=== PATIENT | female | born 1955 | race Caucasian/White ===

== ENCOUNTER 2020-11-30 15:57 | Inpatient (IN) | payer MEDICARE, MEDICAID, SELFPAY ==
--- NOTE | ~2020-11-30 | CT_ITS ---
EXAMINATION: CT ANGIOGRAM OF THE HEAD CT ANGIOGRAM OF THE NECK CLINICAL INFORMATION: Acute CVA. COMPARISON: CT scan of the head 04/18/2016. TECHNIQUE: A noncontrast CT scan of the head was obtained. Test bolus series followed by intravenous administration 70 mL of Omnipaque 350. Helical imaging was performed in the axial plane from the mediastinum to the skull vertex. Delayed postcontrast CT scanning of the head was obtained. The degree of stenosis is based off NASCET criteria. The data was processed at the cytotechnologist/histotechnologist workstation for generation of MIP images. Three-dimensional volume rendered reformatted images were also generated at an offline 3-D workstation. This CT examination was performed using dose optimization techniques as appropriate, variously including the following: *Automated exposure control *Adjustment of mA and/or kV according to patient size (this includes techniques or standardized protocols for targeted exams where dose is matched to indication/reason for exam; i.e. extremities or head) *Use of iterative reconstruction technique DLP: 2236 mGy-cm. FINDINGS: CT Head: There is no evidence of acute intracranial hemorrhage or territorial infarction. No abnormal mass-effect or midline shift is seen. Canas to white matter differentiation is well preserved. No extra-axial fluid collections are identified. The study redemonstrates the meningioma in the right CP angle which measures 2.6 x 1.4 cm axially, unchanged compared to the prior study. There is some distortion of the right ventral gurmeet and middle cerebellar peduncle. The lesion is partially peripherally calcified. No other masses or areas of abnormal enhancement are demonstrated. There is mild commensurate prominence of the ventricles and sulci consistent with diffuse volume loss. There are areas of low-attenuation in the periventricular and subcortical white matter, consistent with chronic microvascular ischemic changes. The study redemonstrates sequelae of bilateral mastoid surgery. There is some fluid in the left mastoidectomy bowl. There is a 1 cm osteoma which is redemonstrated in the anterior left frontal sinus. CTA Neck: There is a classic configuration of the aortic arch. The origins of the great vessels of the neck are widely patent. The bilateral common carotid arteries have uniform caliber. There are mild atheromatous calcifications at the left greater the right carotid bifurcations without significant stenosis. The bilateral cervical internal carotid arteries are patent with uniform caliber. The origins of both vertebral arteries are well-demonstrated. The vertebral arteries are patent bilaterally throughout the cervical region extending intradurally. The vertebral arteries are codominant. Nonvascular: The thyroid gland is mildly prominent with heterogenous attenuation. There is a hyperdense 0.5 cm nodule in the left lobe medially. There are a few superior mediastinal lymph nodes measuring up to 0.8 cm. The bilateral submandibular and parotid glands appear normal. There are emphysematous changes in the lungs bilaterally. There are mild spondylitic changes in the cervical spine. CTA Head: There are atheromatous calcifications of the cavernous internal carotid arteries bilaterally. The vessels opacify normally. There is moderate narrowing of the distal M1 segment of the right middle cerebral artery which has uniform but diminished caliber. The left middle and bilateral anterior cerebral arteries demonstrate normal caliber with no evidence of focal stenosis, aneurysm or vascular malformation. There is normal arborization of the middle cerebral artery branches. The anterior communicating artery is normal. In the posterior circulation, the vertebral arteries are codominant. There is no displacement or mass effect on the right vertebral and right aspect of the basilar artery from the CP angle meningioma. The vertebral arteries intradurally have normal caliber. The basilar artery appears normal. The left posterior cerebral artery arises primarily off the anterior circulation, which is a normal variant. The posterior cerebral arteries have normal caliber. The venous sinuses opacify normally. CT/CT angio head neck IMPRESSION: CT head and neck: 1. The study redemonstrates a right CP angle meningioma which appears stable in size compared to prior imaging. 2. There are no acute bleeds or territorial infarcts. 3. There is diffuse volume loss and there are chronic microvascular ischemic changes. 4. There are sequelae of bilateral mastoid surgery. 5. The thyroid gland is mildly prominent with heterogenous attenuation. There are emphysematous changes in the lungs bilaterally. CTA head and neck: 1. CTA of the cervical arterial structures is normal. There is no flow-limiting stenosis. 2. Intracranially, there is moderate narrowing of the distal M1 segment of the right middle cerebral artery. 3. No vascular malformations or aneurysms are demonstrated.
--- NOTE | ~2020-11-30 | FL_ITS ---
EXAMINATION: FL BARIUM SWALLOW MODIFIED CLINICAL INFORMATION: Dysphagia, stroke. COMPARISON: None TECHNIQUE: Modified barium swallow. FINDINGS: Fluoroscopy provided for modified barium swallow performed by the speech pathologist. The patient swallowed liquids and solids of varying consistencies. There is aspiration noted when the patient swallowed nectar. No additional aspiration was identified, when the patient swallowed additional solids and liquids of other consistencies. FLUOROSCOPY TIME: 2.7 minutes DOSE AREA PRODUCT: 10 mGy FL/FL barium swallow modified IMPRESSION: Modified barium swallow. There is aspiration, when the patient swallowed nectar. Please see speech pathology report for details.
--- NOTE | ~2020-11-30 | XR_ITS ---
EXAMINATION: XR CHEST CLINICAL INFORMATION: CVA. COMPARISON: Chest x-ray 07/19/2018 TECHNIQUE: Frontal portable view of the chest was obtained. 5:01 PM FINDINGS: No significant abnormality is noted involving the heart, lungs, mediastinum, bony thorax or soft tissues. XR/XR chest 1V IMPRESSION: Unremarkable examination.
[2020-11-30 16:11] VITALS: BP 160/60; BP 168/71; PULSE 76; PULSE 86; RESP 18; TEMP 36.8; O2SAT 97; BMI 22.4
--- NOTE | 2020-11-30 16:16 | ED_ITS ---
HPI - Neuro Symptoms/Deficit General Chief Complaint: Stroke Stated Complaint: stroke alert Time Seen by Provider: 11/30/20 16:12 Source: patient Mode of arrival: EMS Limitations: no limitations History of Present Illness HPI Narrative: Patient's history history of hypertension and anxiety been having repeated episode of right- sided weakness for last 2 days started 2 days ago when she noticed right-sided weakness which lasted less than 5 minutes again yesterday she had the same feeling and today when she woke up at 08:00 was unable to get up out of the bed because of right-sided weakness and fell without any significant injuries her niece was trying to call her all day today and she was not answering the phone around 03:00 o'clock prior to arrival patient just opened the door after crawling family noticed the patient has significant right-sided weakness with dysarthria. Related Data Home Medications Medication Instructions Recorded Confirmed atenolol 1 tab PO DAILY 11/30/20 11/30/20 clonazepam 1 tab PO DAILY 11/30/20 11/30/20 lisinopril 1 tab PO DAILY 11/30/20 11/30/20 Allergies Allergy/AdvReac Type Severity Reaction Status Date / Time No Known Allergies Allergy Verified 11/30/20 16:10 [No Known Allergies*] Review of Systems Review of Systems: Constitutional : No Weight loss, No Fever, No Chills ENT/Mouth : No sore throat, No Rhinorrhea Eyes: No Eye Pain, No Swelling Cardiovascular : No Chest Pain, no palpitations Respiratory : No Cough, No Sputum, no shortness of breath Gastrointestinal : no Nausea, No Vomiting, No Diarrhea, No abdominal Pain, no black stools Genitourinary : No Dysuria, No Urinary Frequency Musculoskeletal : No joint pain, No Myalgias, No Joint Swelling Skin : No Skin Lesions, No rash Neuro : + Weakness, No Numbness, No Dizziness, No Headache Psych : No Anxiety/Panic, No Depression Heme/Lymph: No Bruising, No Lymphadenopathy Endocrine : No Polyuria, No Polydipsia All other systems reviewed and are negative Neurologic: Reports Abnormal speech present [facility] Past Medical History Medical History Cerebellar tumor COPD (chronic obstructive pulmonary disease) HTN (hypertension) Social History Social History Alcohol intake: current Alcohol intake frequency: holidays/special occasions o nly Smoking Status: Current every day smoker Use of substances other than those prescribed or required for medical reasons: No Advance Directives: No Advance Directives Information Provided: Yes service: No Current occupational status: retired Physical Exam Vital Signs: Vital Signs: Last Vital Signs Temp 97.6 F 11/30/20 22:54 Pulse 69 11/30/20 22:54 Resp 18 11/30/20 22:54 BP 151/67 H 11/30/20 22:54 Pulse Ox 96 11/30/20 22:54 Body Mass Index 22.4 Const: General: cooperative, healthy appearing and no acute distress Nutritional Appearance: average body habitus Orientation/consciousness: patient oriented x3 HENMT: Head: Yes normal to inspection, Yes No palpable skull fracture present, Yes normocephalic and Yes atraumatic Ears: hearing grossly normal bilaterally General nose exam: Normal external nose present Face and sinus: Yes normal facial exam Mouth: Normal oral and palatal mucosa present Eyes: General: appearance normal, both eyes and all related structures Neck: Neck: Yes normal visual inspection, Yes full ROM, Yes no lymphadenopathy and Yes no meningeal signs Chest: Chest palpation & inspection: normal inspection of the chest and normal palpation of entire chest wall Resp: Effort & Inspection: normal respiratory effort Auscultation: clear to auscultation bilaterally, no crackles, no rales and no rhonchi Cardio: Jugular venous distension: no JVD Palpation: normal PMI Rate: regular rate Rhythm: regular rhythm Heart sounds: S1 normal heart sound present and S2 normal heart sound present Peripheral pulses: Peripheral pulses 2+ throughout GI: Inspection: Yes normal to inspection Palpation (GI): Soft to palpation, not firm and nontender Auscultation: normal bowel sounds : General: Yes no CVA tenderness Back/Spine/Pelvis: Back: no CVA tenderness Thoracic/Lumbar Spine: thoracic and lumbar spine normal to inspection Skin: General skin exam: no rashes or lesions noted Neuro: Other: Patient with dysarthria and right-sided weakness and right facial droop General: patient oriented x3 and no meningeal signs Cognition (Neuro): normal cognition Speech: Abnormal speech present MDM - Neuro Symptoms/Deficit MDM Narrative Medical decision making narrative: Patient has recurrent episodes of left-sided weakness for last 48 hours got worse today with persistent weakness since :00 o'clock morning CTA and CT head is negative for any acute stroke although showed right M1 narrowed case discussed with Dr. Lam neurologist no need for MRI will start her on aspirin patient EKG showed normal sinus rhythm without any AFib Differential Diagnosis Differential diagnosis: Likely transient cerebral ischemia Medical Records Attestation: I reviewed the patient's medical records. Lab Data Attestation: I reviewed the patient's lab results. Result diagrams: 11/30/20 16:58 11/30/20 17:58 Labs: Lab Results 11/30/20 11/30/20 11/30/20 Range/Units 16:25 16:58 16:58 WBC 13.5 H (4.8-10.8) X10*3/uL RBC 4.57 (4.20-5.50) X10*6/uL Hgb 14.9 (12.0-16.0) g/dl Hct 43.4 (37-47) % MCV 95.0 (80-98) fL MCH 32.6 (27.0-33.0) pg MCHC 34.3 (31.0-35.0) g/dl RDW 12.4 (11.0-16.0) % Plt Count 219 (160-400) X10*3/uL MPV 9.9 (9.4-12.3) fL Immature Gran % (Auto) 0.5 H (0.0-0.4) % Neut % (Auto) 87.9 H (45-73) % Lymph % (Auto) 5.7 L (20-40) % Garden % (Auto) 5.8 (2-11) % Eos % (Auto) 0.0 (0-4) % Baso % (Auto) 0.1 (0-2) % Lymph # (Auto) 0.8 L (1.2-4.9) X10*3/uL Garden # (Auto) 0.8 (0.1-1.2) X10*3/uL Eos # (Auto) 0.0 (0.0-0.4) X10*3/uL Baso # (Auto) 0.0 (0.0-0.2) X10*3/uL Abs Immat Gran (auto) 0.07 H (0.00-0.03) X10*3/uL Absolute Neuts (auto) 11.8 H (2.0-8.3) X10*3/uL Absolute Nucleated RBC 0.000 (0.0-0.012) X10*3/uL Nucleated RBC % (auto) 0.0 (0.0-0.2) /100WBC PT 12.2 (10.8-13.0) SEC INR 1.0 (0.9-1.1) APTT 31.4 (24.1-38.0) SEC Sodium (135-145) mmol/L Potassium (3.3-5.1) mmol/L Chloride (96-108) mmol/L Carbon Dioxide (22-29) mmol/L Anion Gap (12-20) BUN (9-16) mg/dL Creatinine (0.5-1.4) mg/dL Estim Creat Clear Calc Estimated GFR POC Glucose 140 H (60-115) mg/dL Random Glucose (60-115) mg/dL Calcium (8.4-10.2) mg/dL Total Bilirubin (0.0-1.0) mg/dL Direct Bilirubin (0.0-0.5) mg/dL AST (5-31) U/L ALT (0-31) U/L Alkaline Phosphatase (39-117) U/L Total Creatine Kinase (26-140) U/L Troponin I High Sens (<3.5-17.0) ng/L Total Protein (6.5-8.0) g/dL Albumin (3.5-5.0) g/dL COVID-19 ([facility]) (Negative) COVID-19 Clin Com 11/30/20 11/30/20 11/30/20 Range/Units 16:58 17:58 19:45 WBC (4.8-10.8) X10*3/uL RBC (4.20-5.50) X10*6/uL Hgb (12.0-16.0) g/dl Hct (37-47) % MCV (80-98) fL MCH (27.0-33.0) pg MCHC (31.0-35.0) g/dl RDW (11.0-16.0) % Plt Count (160-400) X10*3/uL MPV (9.4-12.3) fL Immature Gran % (Auto) (0.0-0.4) % Neut % (Auto) (45-73) % Lymph % (Auto) (20-40) % Garden % (Auto) (2-11) % Eos % (Auto) (0-4) % Baso % (Auto) (0-2) % Lymph # (Auto) (1.2-4.9) X10*3/uL Garden # (Auto) (0.1-1.2) X10*3/uL Eos # (Auto) (0.0-0.4) X10*3/uL Baso # (Auto) (0.0-0.2) X10*3/uL Abs Immat Gran (auto) (0.00-0.03) X10*3/uL Absolute Neuts (auto) (2.0-8.3) X10*3/uL Absolute Nucleated RBC (0.0-0.012) X10*3/uL Nucleated RBC % (auto) (0.0-0.2) /100WBC PT (10.8-13.0) SEC INR (0.9-1.1) APTT (24.1-38.0) SEC Sodium 139 (135-145) mmol/L Potassium 4.1 (3.3-5.1) mmol/L Chloride 106 (96-108) mmol/L Carbon Dioxide 21 L (22-29) mmol/L Anion Gap 16 (12-20) BUN 16 (9-16) mg/dL Creatinine 0.79 (0.5-1.4) mg/dL Estim Creat Clear Calc 56.1 Estimated GFR > 60 POC Glucose (60-115) mg/dL Random Glucose 104 (60-115) mg/dL Calcium 9.2 (8.4-10.2) mg/dL Total Bilirubin 0.6 (0.0-1.0) mg/dL Direct Bilirubin 0.3 (0.0-0.5) mg/dL AST 33 H (5-31) U/L ALT 44 H (0-31) U/L Alkaline Phosphatase 72 (39-117) U/L Total Creatine Kinase 66 (26-140) U/L Troponin I High Sens < 3.5 (<3.5-17.0) ng/L Total Protein 6.9 (6.5-8.0) g/dL Albumin 4.1 (3.5-5.0) g/dL COVID-19 ([facility]) Negative (Negative) COVID-19 Clin Com See Note ECG Data Attestation: I personally reviewed and interpreted this ECG as follows: Interpretation: Normal sinus rhythm heart rate 82 beats per minute poor progression of R-wave no acute ST T wave changes normal axis normal intervals impression no acute ischemia NIH Stroke Scale Internal: Initial- Upon Arrival Level of Consciousness: Alert Level of Consciousness Questions: Answers both questions correctly Level of Consciousness Commands: Performs both tasks correctly Best Gaze: Normal Visual: No visual loss Facial Palsy: Minor paralyis Motor Arm (Right): Drift Motor Arm (Left): No drift Motor Leg (Right): Drift Motor Leg (Left): No drift Limb Ataxia: Absent Sensory: Normal Best Language: No aphasia Dysarthia: Mild to moderate dysarthria Extinction and Inattention: No abnormality Score: 4 Discharge Plan Discharge Clinical Impression: Cerebrovascular accident Qualifiers: CVA mechanism: embolism Precerebral and cerebral artery: middle cerebral artery Laterality of affected vessel: left Qualified Code(s): I63.412 - Cerebral in farction due to embolism of left middle cerebral artery Patient Disposition: Admitted As Inpatient
--- NOTE | 2020-11-30 16:17 | ECG_ITS ---
Test Reason : cva Blood Pressure : / mmHG Vent. Rate : 082 BPM Atrial Rate : 082 BPM P-R Int : 166 ms QRS Dur : 076 ms QT Int : 374 ms P-R-T Axes : 066 003 054 degrees QTc Int : 436 ms Normal sinus rhythm Possible Anterior infarct (cited on or before 21-APR-2015) Abnormal ECG When compared with ECG of 21-APR-2015 04:53, No significant change was found Referred By: Didier Carranza Electronically Signed By:ELZBIETA MONROE MD
[2020-11-30 16:28] LABS: Glucose, Whole Blood 140 mg/dL (60-115)
--- NOTE | 2020-11-30 16:29 | PC.NURSE ---
patient a&ox3, rt sided weakness, rt facial droop and slurred speech noted, pt has no c/o pain or discomfort, nsr on quality assurance monitor, pt to ct scan
[2020-11-30] MEDS: iohexoL 350 MG/ML 100 ML INFUS..BTL IV (16:48)
--- NOTE | 2020-11-30 17:01 | PC.NURSE ---
swallow eval nursing swallow performed, pt began coughing after second teaspoon, provider notified pt failed nursing swallow
[2020-11-30 17:02] LABS: MANUAL DIFF FLAG NO
[2020-11-30 17:11] LABS: Basophils Percent Auto 0.1 % (0-2); Hematocrit 43.4 % (37-47); Hemoglobin 14.9 g/dl (12.0-16.0); Imm Gran Abs Auto 0.07 X10*3/uL (0.00-0.03); Imm Gran Pct Auto 0.5 % (0.0-0.4); Lymphocytes Absolute Auto 0.8 X10*3/uL (1.2-4.9); Lymphocytes Percent Auto 5.7 % (20-40); Mean Corpuscular HGB Conc 34.3 g/dl (31.0-35.0); Mean Corpuscular Hemoglobin 32.6 pg (27.0-33.0); Mean Platelet Volume 9.9 fL (9.4-12.3); Monocytes Absolute Auto 0.8 X10*3/uL (0.1-1.2); Monocytes Percent Auto 5.8 % (2-11); Neutrophils Absolute Auto 11.8 X10*3/uL (2.0-8.3); Neutrophils Percent Auto 87.9 % (45-73); Platelet Count 219 X10*3/uL (160-400); Red Blood Count 4.57 X10*6/uL (4.20-5.50); Red Cell Distribution Width 12.4 % (11.0-16.0); White Blood Count 13.5 X10*3/uL (4.8-10.8)
[2020-11-30 17:16] LABS: Prothrombin Time 12.2 SEC (10.8-13.0)
[2020-11-30 17:18] LABS: Partial Thromboplastin Time 31.4 SEC (24.1-38.0)
[2020-11-30 17:36] LABS: Troponin-I High Sensitivity < 3.5 ng/L (<3.5-17.0)
[2020-11-30 18:18] VITALS: BP 146/45; PULSE 75; RESP 15; TEMP 36.9; O2SAT 94
[2020-11-30 18:35] LABS: Alanine Aminotransferase 44 U/L (0-31); Albumin Level 4.1 g/dL (3.5-5.0); Alkaline Phosphatase 72 U/L (39-117); Anion Gap 16 (12-20); Aspartate Amino Transferase 33 U/L (5-31); Bilirubin Direct 0.3 mg/dL (0.0-0.5); Bilirubin Total 0.6 mg/dL (0.0-1.0); Blood Urea Nitrogen 16 mg/dL (9-16); Calcium 9.2 mg/dL (8.4-10.2); Carbon Dioxide 21 mmol/L (22-29); Chloride 106 mmol/L (96-108); Creatinine Clr Calc Pharmacy 56.1; Estimated Glomerular Filt Rate > 60; Glucose Random 104 mg/dL (60-115); Potassium 4.1 mmol/L (3.3-5.1); Sodium 139 mmol/L (135-145); Total Protein 6.9 g/dL (6.5-8.0)
--- NOTE | 2020-11-30 19:02 | PC.NURSE ---
patient a&ox3, residential monitor nsr 70s, vitals stable, upon review of MRI form patient is refusing MRI because it is a closed MRI, provider notified and pt was offered medication to relax for mri and patient again refused, will attempt to educate the patient on the reasoning for the mri in hopes to change her mind, will continue to monitor.
[2020-11-30] MEDS: 0.9 % Sodium Chloride 1,000 ML 999 ML IVCONT (19:03)
--- NOTE | 2020-11-30 19:46 | PC.NURSE ---
covid swab obtained, attempted to convince patient to do the MRI again, patient again refused, this nurse went over the risks of not having it done with the patient
[2020-11-30 20:07] LABS: COVID-19 Test Negative (Negative)
[2020-11-30] MEDS: Aspirin 300 MG SUPP.RECT PR (20:07)
[2020-11-30 20:08] VITALS: BP 156/71; PULSE 73; RESP 18; TEMP 36.9; O2SAT 96
--- NOTE | 2020-11-30 20:27 | PC.NURSE ---
patient a&ox3, speaking in full sentences although the patients speech has noted to become more garbled, pt continues to have rt upper and lower extremity weakness, provider notified of increased garbled speech, pt continues to refuse MRI, equalizing saw operator nsr 70s, hospitalist in to see the patient,will continue to monitor.
[2020-11-30 21:55] LABS: Cholesterol 242 mg/dL; HDL Cholesterol 46 mg/dL; LDL Cholesterol Calculated 181 mg/dl; Triglycerides 77 mg/dL
--- NOTE | 2020-11-30 22:28 | MHC.CM.PN ---
CM met with pt. C/O R sided weakness and dysarthria. Pt admitted to observation. YEBOAH reviewed and signed. Pt signed with L hand. Pt has bilateral hearing aides, but only has L hearing aide in. Has daughter in [facility]. Niece, Fay Miller ([phone]) lives in duplex next to pt. D/C plan pending further evaluation. Pt lives alone. Will probably need STR.
--- NOTE | 2020-11-30 22:40 | MHC.CM.PN ---
Daughter, Cherelle in [facility] ([phone]) CM to follow for d/c needs
[2020-11-30] MEDS: Enoxaparin Sodium 40 MG/0.4 ML SYRINGE SUBCUT (22:53)
[2020-11-30 22:54] VITALS: BP 151/67; PULSE 69; RESP 18; TEMP 36.4; O2SAT 96
--- NOTE | 2020-11-30 22:55 | PC.NURSE ---
patient a&ox3, library monitor sinus briana 60s, patient continued refusing MRI.
--- NOTE | 2020-11-30 23:00 | PC.NURSE ---
Report received from AAMIR Thomas. Pt resting comfortably at this time. Will continue to monitor. Awaiting bed assignment.
--- NOTE | 2020-11-30 23:03 | MHC.CM.PN ---
CM tiger text Dr. Limon. Pt status changed to Inpatient admit s/p CVA. Pt evaluation ordered. Pt refusing MRI because it's not an open MRI and she cannot tolerate an MRI otherwise. RN aware. IMM reviewed and signed per protocol. Copy to pt and in chart. CM to follow for d/c needs.
--- NOTE | 2020-11-30 23:30 | P.HPHOSP_ITS ---
History of Present Illness Date of Service: 11/30/20 Chief Complaint: weakness This is a 65-year-old female past medical history of hypertension, COPD, meningioma, as well as anxiety who presents to the hospital with complaints of weakness x2 days. Patient slurred speech and very difficult to understand but reports that her symptoms started Monday, lasted for few minutes and then resolved spontaneously. On Monday patient started having right sided weakness that lasted couple hours, but patient refused to complete the hospital. She woke up this morning at 8:00 a.m. with right-sided weakness. Her daughter was trying to get hold of her but was not successful does 3:00 p.m. when they went to check on her found her to have weakness on the right side and therefore brought her to the ED. Patient denies any headache, change in vision, no nausea or vomiting, no abdominal pain, no chest pain, no shortness of breath, no palpitations. No diarrhea or constipation. No lower extremity edema. No urinary symptoms On arrival to the ED blood pressure is 168/71 all other vitals normal Labs are significant for WBC count of 13.5, glucose of 140, AST of 33, ALT of 44, otherwise unremarkable. COVID-[address] head [address] CT angiogram of head and neck shows redemonstration of CP angle meningioma which appears stable in size, no Q bleed or territorial infarct, diffuse volume lives and chronic microvascular ischemic changes. CTA of the cervical arterial structures normal, no flow-limiting stenosis. Intracranially, there is moderate narrowing of the distal M1 segment of the right middle cerebral artery. Review of Systems Review of Systems: Yes all other systems are reviewed and are negative [facility] Medical History (Updated 12/01/20 @ 05:28 by Emani Morrissey MD) Cerebellar tumor COPD (chronic obstructive pulmonary disease) HTN (hypertension) Meningioma Pertinent family history: denies Social History Alcohol intake: current Alcohol intake frequency: holidays/special occasions only Smoking Status: Current every day smoker Use of substances other than those prescribed or required for medical reasons: No Advance Directives: No Advance Directives Information Provided: Yes service: No Current occupational status: retired Meds Allergies Allergy/AdvReac Type Severity Reaction Status Date / Time No Known Allergies Allergy Verified 11/30/20 16:10 [No Known Allergies*] Active Medications: Current Medications Generic Name Dose Route Start Last Admin Trade Name Freq PRN Reason Stop Dose Admin Acetaminophen 650 mg 11/30/20 20:56 Acetaminophen Supp 650 Mg Supp.Rect DC Q6H PRN Pain, Mild (Pain Scale 1-3) Aspirin 81 mg 12/01/20 09:00 Aspirin 300 Mg Supp.Rect DC DAILY [facility] Atenolol 25 mg 12/01/20 09:00 Atenolol 25 Mg Tablet PO DAILY [facility] Protocol Clonazepam 1 mg 12/01/20 09:00 Clonazepam 1 Mg Tablet PO DAILY [facility] Enoxaparin Sodium 40 mg 11/30/20 20:56 11/30/20 22:53 Enoxaparin Sodium 40 Mg/0.4 Ml Syringe SUBCUT 40 mg Q24H [facility] Administration Lactated Ringer's 1,000 mls @ 80 mls/hr 11/30/20 23:30 Lr IVCONT .[id number] [facility] Lisinopril 40 mg 12/01/20 09:00 Lisinopril 40 Mg Tablet PO DAILY [facility] Protocol Ondansetron HCl 4 mg 11/30/20 20:56 Ondansetron Hcl 4 Mg/2 Ml Vial IVPUSH Q8H PRN Nausea and Vomiting Pharmacy Consult 1 each 11/30/20 19:04 Consult Rx Perform Med Rec MISCELLANE ONCE PRN Consult order Sodium Chloride 3 ml 12/01/20 00:00 0.9 % Sodium Chloride Flush 3 Ml Syringe IVFLUSH QSHIFT [facility] Home Medications Medication Instructions Recorded Confirmed Last Taken Type atenolol 1 tab PO DAILY 11/30/20 11/30/20 11/29/20 History clonazepam 1 tab PO DAILY 11/30/20 11/30/20 11/29/20 History lisinopril 1 tab PO DAILY 11/30/20 11/30/20 11/29/20 History Physical Exam Vital Signs and Narrative: Vital Signs: Last Vital Signs Temp 97.6 F 11/30/20 22:54 Pulse 69 11/30/20 22:54 Resp 18 11/30/20 22:54 BP 151/67 H 11/30/20 22:54 Pulse Ox 96 11/30/20 22:54 Body Mass Index 22.4 Const: General: cooperative and no acute distress Orientation/consciousness: patient oriented x3 Eyes: General: appearance normal, both eyes and all related structures Pupils: Equal, round and reactive pupils present EOM: EOMs intact bilaterally Resp: Effort & Inspection: normal respiratory effort and able to speak in complete sentences Auscultation: clear to auscultation bilaterally Cardio: Rate: regular rate Rhythm: regular rhythm GI: Palpation (GI): Soft to palpation Auscultation: normal bowel sounds Skin: General skin exam: no rashes or lesions noted Neuro: Other: drift of right arm, unable to lift right leg to observe for drift. Has 2/5 strenght in right lower extremity, and 4/5 in upper right extremity. has facial droop and tongue deviation to the right General: patient oriented x3 Cranial nerves: Yes Equal, round and reactive pupils present Cognition (Neuro): normal cognition Extrem: General: Yes normal to inspection and Yes no pedal edema Results Labs CBC and Chem 7: 11/30/20 16:58 11/30/20 17:58 Labs: Laboratory Results - last 24 hr 11/30/20 11/30/20 11/30/20 16:25 16:58 16:58 MCV 95.0 MCH 32.6 MCHC 34.3 RDW 12.4 Plt Count 219 MPV 9.9 Immature Gran % (Auto) 0.5 H Neut % (Auto) 87.9 H Lymph % (Auto) 5.7 L Power % (Auto) 5.8 Eos % (Auto) 0.0 Baso % (Auto) 0.1 Lymph # (Auto) 0.8 L Power # (Auto) 0.8 Eos # (Auto) 0.0 Baso # (Auto) 0.0 Abs Immat Gran (auto) 0.07 H Absolute Neuts (auto) 11.8 H Absolute Nucleated RBC 0.000 Nucleated RBC % (auto) 0.0 PT 12.2 INR 1.0 APTT 31.4 Anion Gap Estim Creat Clear Calc Estimated GFR POC Glucose 140 H Random Glucose Calcium Total Bilirubin Direct Bilirubin AST ALT Alkaline Phosphatase Total Creatine Kinase Troponin I High Sens Total Protein Albumin Triglycerides Cholesterol LDL Cholesterol, Calc HDL Cholesterol COVID-19 ([facility]) COVID-19 Clin Com 11/30/20 11/30/20 11/30/20 16:58 17:58 19:45 MCV MCH MCHC RDW Plt Count MPV Immature Gran % (Auto) Neut % (Auto) Lymph % (Auto) Power % (Auto) Eos % (Auto) Baso % (Auto) Lymph # (Auto) Power # (Auto) Eos # (Auto) Baso # (Auto) Abs Immat Gran (auto) Absolute Neuts (auto) Absolute Nucleated RBC Nucleated RBC % (auto) PT INR APTT Anion Gap 16 Estim Creat Clear Calc 56.1 Estimated GFR > 60 POC Glucose Random Glucose 104 Calcium 9.2 Total Bilirubin 0.6 Direct Bilirubin 0.3 AST 33 H ALT 44 H Alkaline Phosphatase 72 Total Creatine Kinase 66 Troponin I High Sens < 3.5 Total Protein 6.9 Albumin 4.1 Triglycerides Cholesterol LDL Cholesterol, Calc HDL Cholesterol COVID-19 ([facility]) Negative COVID-19 Clin Com See Note 11/30/20 21:25 MCV MCH MCHC RDW Plt Count MPV Immature Gran % (Auto) Neut % (Auto) Lymph % (Auto) Power % (Auto) Eos % (Auto) Baso % (Auto) Lymph # (Auto) Power # (Auto) Eos # (Auto) Baso # (Auto) Abs Immat Gran (auto) Absolute Neuts (auto) Absolute Nucleated RBC Nucleated RBC % (auto) PT INR APTT Anion Gap Estim Creat Clear Calc Estimated GFR POC Glucose Random Glucose Calcium Total Bilirubin Direct Bilirubin AST ALT Alkaline Phosphatase Total Creatine Kinase Troponin I High Sens Total Protein Albumin Triglycerides 77 Cholesterol 242 LDL Cholesterol, Calc 181 HDL Cholesterol 46 COVID-19 ([facility]) COVID-19 Clin Com Imaging Radiologist's Impressions: Impressions Chest X-Ray 11/30/20 16:18 IMPRESSION: Unremarkable examination. Head/Neck CTA 11/30/20 16:19 IMPRESSION: CT head and neck: 1. The study redemonstrates a right CP angle meningioma which appears stable in size compared to prior imaging. 2. There are no acute bleeds or territorial infarcts. 3. There is diffuse volume loss and there are chronic microvascular ischemic changes. 4. There are sequelae of bilateral mastoid surgery. 5. The thyroid gland is mildly prominent with heterogenous attenuation. There are emphysematous changes in the lungs bilaterally. CTA head and neck: 1. CTA of the cervical arterial structures is normal. There is no flow-limiting stenosis. 2. Intracranially, there is moderate narrowing of the distal M1 segment of the right middle cerebral artery. 3. No vascular malformations or aneurysms are demonstrated. Assessment and Plan (1) Cerebrovascular accident: Qualifiers: CVA mechanism: embolism Laterality of affected vessel: left Precerebral and cerebral artery: middle cerebral artery Qualified Code(s): I63.412 - Cerebral infarction due to embolism of left middle cerebral artery Status: Acute (2) COPD (chronic obstructive pulmonary disease): Status: Acute (3) HTN (hypertension): Status: Acute This is a 65-year-old female with risk factors of hypertension who presents to the hospital with complaints of weakness on the right side found to have dysarthria, and right and lower right extremity weakness. # CVA - CT head and angiogram are not demonstrating any acute abnormality - has history of meningioma which is redemonstrated with no change in size - patient has clear dysarthria as well as right upper and lower extremity weakness - refused MRI- neurology consulted and recommends aspirin daily as well as echocardiogram in a.m. - will obtain lipid profile - start high dose statin - admit to telemetry to monitor for AFib - will consult PT - patient also failed beside swallow eval will consult speech team # hypertension - elevated - since symptoms started more than 24 hours will resume her home medications # COPD - no exacerbation - PRN inhaler DVT ppx: Lovenox
[2020-12-01] MEDS: 0.9 % Sodium Chloride Flush 3 ML SYRINGE IVFLUSH ×2 (01:31→16:50)
--- NOTE | 2020-12-01 02:36 | PC.NURSE ---
Pt used chilo thomas to speak with this RN regarding care. Pt voicing concerns, stating Is the doctor going to ignore me and am I not going to be treated because I refused the MRI? This RN explained to the patient that although the MRI is highly recommended, it will not affect the quality of her care or treatment while hospitalized. This RN reviewed care plan and goals with patient, and patient is agreeable to plan. Continue to await bed assignment. Will continue to monitor.
[2020-12-01] MEDS: Lactated Ringers 1,000 ML 80 ML IVCONT (04:10)
[2020-12-01 06:42] LABS: MANUAL DIFF FLAG NO
[2020-12-01 06:53] LABS: Basophils Percent Auto 0.2 % (0-2); Eosinophils Absolute Auto 0.1 X10*3/uL (0.0-0.4); Eosinophils Percent Auto 0.4 % (0-4); Hematocrit 41.5 % (37-47); Imm Gran Abs Auto 0.05 X10*3/uL (0.00-0.03); Imm Gran Pct Auto 0.4 % (0.0-0.4); Lymphocytes Absolute Auto 2.1 X10*3/uL (1.2-4.9); Lymphocytes Percent Auto 16.3 % (20-40); Mean Corpuscular HGB Conc 33.7 g/dl (31.0-35.0); Mean Corpuscular Hemoglobin 32.1 pg (27.0-33.0); Mean Corpuscular Volume 95.2 fL (80-98); Mean Platelet Volume 10.2 fL (9.4-12.3); Monocytes Absolute Auto 1.1 X10*3/uL (0.1-1.2); Neutrophils Absolute Auto 9.3 X10*3/uL (2.0-8.3); Neutrophils Percent Auto 73.7 % (45-73); Platelet Count 210 X10*3/uL (160-400); Red Blood Count 4.36 X10*6/uL (4.20-5.50); Red Cell Distribution Width 12.5 % (11.0-16.0); White Blood Count 12.6 X10*3/uL (4.8-10.8)
[2020-12-01 07:18] LABS: Anion Gap 12 (12-20); Blood Urea Nitrogen 18 mg/dL (9-16); Calcium 8.6 mg/dL (8.4-10.2); Carbon Dioxide 19 mmol/L (22-29); Chloride 113 mmol/L (96-108); Creatinine Clr Calc Pharmacy 54.1; Estimated Glomerular Filt Rate > 60; Glucose Random 103 mg/dL (60-115); Sodium 140 mmol/L (135-145)
--- NOTE | 2020-12-01 07:33 | PC.NURSE ---
report taken from Trish RN. patient resting on stretcher, awake and alert. speech sounding slurred, but able to speak in full sentences. patient assisted with bedpan. patient has room in [facility]. called to floor to give report. floor RN to call back to receive report.
--- NOTE | 2020-12-01 07:37 | PC.NURSE ---
PHYSICAL THERAPY AT BEDSIDE TO ASSESS PATIENT.
[2020-12-01 08:00] VITALS: BP 151/67; BP 178/82; PULSE 69; PULSE 72; RESP 20; TEMP 36.6; O2SAT 96; O2SAT 97
--- NOTE | 2020-12-01 09:41 | MHC.CM.PN ---
CM met with Patient to discuss PT's recommendation for Acute Rehab; Patient is agreeable to referrals to the 3 area Acute Rehabs, [facility] being her first choice. CM will follow for dc planning.
[2020-12-01 11:03] VITALS: BP 172/73; PULSE 72; RESP 18; TEMP 36.1; O2SAT 94
--- NOTE | 2020-12-01 12:39 | MHC.STROKE ---
1550 EMS PRE-NOTIFIED STROKE ALERT, DEMETRIUS WAS 2 DAYS AGO AND DISCOVERY OF WORSENING SYMPTOMS 11/30/[address] HEAD AND CTA H/N. LEFT M1 NARROWING WHICH CORRELATES WITH HER SYMPTOMS. I PROVIDED STROKE EDUCATION. SHE IS REFUSING THE MRI AT THIS TIME. SEEN BY REHAB AND ACUTE REHAB IS RECOMMENDED. SHE WAS UNABLE TO ANSWER ALL OF MY QUESTIONS. DYSARTHRIA NOTED. + SMOKING AND SMOKING CESSATION EDUCATION INITIATED. CONSIDER A NICOTINE PATCH. I REVIEWED THE STROKE EDUCATION BOOKLET AND SHE DOES REQUIRE REINFORCEMENT. I WILL CONTINUE TO FOLLOW. NEUROLOGY CONSULT PENDING.
[2020-12-01 15:41] VITALS: BP 173/66; PULSE 66; RESP 18; TEMP 36.4; O2SAT 97
--- NOTE | 2020-12-01 16:31 | HO.PM.IMPN ---
Subjective Subjective Date of Service: 12/01/20 Interval History: seen and examined this AM no specific complaints, just wants to eat denies LOZA ROS General - no fevers or chills Cardiovascular - no chest pain Respiratory - no shortness of breath or cough Abdominal- no abdominal pain, nausea, vomiting, diarrhea Physical Exam Vital Signs: Vital Signs: Last Vital Signs Temp 97.6 F 12/01/20 15:41 Pulse 66 12/01/20 15:41 Resp 18 12/01/20 15:41 BP 173/66 H 12/01/20 15:41 Pulse Ox 97 12/01/20 15:41 Body Mass Index 22.4 Const: Other: General - no acute distress, appears comfortable Cardiovascular - regular rate and rhythm, S1-S2 Lungs - normal respiratory effort, clear to auscultation bilaterally, no wheezing Abdomen - soft, nontender, no rebound or guarding Extremities - no edema bilaterally Neuro - awake and alert, dysarthria -- ? appears to be improving; b/l UE strength appears nearly equal; RLE 3-4/5; LLE nl Objective Data Current Medications Generic Name Dose Route Start Last Admin Trade Name Freq PRN Reason Stop Dose Admin Acetaminophen 650 mg 11/30/20 20:56 Acetaminophen Supp 650 Mg Supp.Rect UT Q6H PRN Pain, Mild (Pain Scale 1-3) Aspirin 300 mg 12/01/20 09:00 12/01/20 09:26 Aspirin 300 Mg Supp.Rect UT Not Given DAILY [facility] Atenolol 25 mg 12/01/20 09:00 12/01/20 09:26 Atenolol 25 Mg Tablet PO Not Given DAILY [facility] Protocol Atorvastatin Calcium 80 mg 12/01/20 09:00 12/01/20 09:26 Atorvastatin Calcium 80 Mg Tablet PO Not Given DAILY [facility] Clonazepam 1 mg 12/01/20 09:00 12/01/20 09:26 Clonazepam 1 Mg Tablet PO Not Given DAILY [facility] Enoxaparin Sodium 40 mg 11/30/20 20:56 11/30/20 22:53 Enoxaparin Sodium 40 Mg/0.4 Ml Syringe SUBCUT 40 mg Q24H ISAURA Administration Lactated Ringer's 1,000 mls @ 80 mls/hr 11/30/20 23:30 12/01/20 12:27 Lr IVCONT Not Given .[id number] ISAURA Lisinopril 40 mg 12/01/20 09:00 12/01/20 09:26 Lisinopril 40 Mg Tablet PO Not Given DAILY [facility] Protocol Ondansetron HCl 4 mg 11/30/20 20:56 Ondansetron Hcl 4 Mg/2 Ml Vial IVPUSH Q8H PRN Nausea and Vomiting Pharmacy Consult 1 each 11/30/20 19:04 Consult Rx Perform Med Rec MISCELLANE ONCE PRN Consult order Sodium Chloride 3 ml 12/01/20 00:00 12/01/20 07:37 0.9 % Sodium Chloride Flush 3 Ml Syringe IVFLUSH Not Given QSHIFT [facility] Labs CBC & Chem 7: 12/01/20 06:35 12/01/20 06:35 Assessment and Plan (1) Cerebrovascular accident: Status: Acute Assessment and Plan: This is a 65-year-old female with a past medical history of hypertension, HLD who is admitted for acute CVA. 1. Acute CVA presented 24+ hours from symptoms, out of t-PA window asa + statin telemonitor + echo Neurology consult refusing MRI due to claustrophobia despite being offered anxiolytics PT/OT passed swallow -- diet started 2. HTN >24 hours since start of symptoms, continue bp meds unless neurology indicates 3. HLD LDL 180 high intensity statin started Full Code DVT pptx, lovenox Dispo: anticipate acute rehab in the next 24-48 hours
--- NOTE | 2020-12-01 16:46 | P.CNNE_ITS ---
History of Present Illness Data of Consult Service Date: 12/01/20 Primary Care Provider: Miranda Anguiano MD HPI Reason for consult: Feeling of right-sided weakness. Increased cough and shortness of breath This is a 65-year-old woman who smokes and has a history of hypertension and COPD came in because she felt some weakness on the right side. She had a CT scan of the head which was negative and a CTA that does not show any hemodynamically significant stenosis. There is incidental finding of mild distal narrowing of the right M1 segment. She still feels some right-sided ankle weakness. Review of Systems Eyes: Eyes: Reports no additional eye complaints ENT: Reports system reviewed and no additional complaints, except as doc umented and Reports Normal hearing present Cardiovascular: Cardiovascular: Reports no additional cardiovascular complaints Respiratory: Respiratory: Reports no additional respiratory complaints Gastrointestinal: Gastrointestinal: Reports no additional gastrointestinal complaints Musculoskeletal: Musculoskeletal: Reports no additional musculoskeletal complaints Integumentary/Breasts: Skin/Breast: Reports system reviewed and no additional complaints, except as docu Neurologic: Reports as per HPI and Reports Normal hearing present Psychiatric: Psychiatric: Reports as per HPI Endocrine: Endocrine: Reports no additional endocrine complaints Hematologic/Lymphatic: Hematologic/Lymphatic: Reports no additional hematologic/lymphatic complaints Allergic/Immunologic: Allergic/Immunologic: Reports no additional allergic/immunologic complaints [facility] Past Medical History Medical History (Updated 12/01/20 @ 17:01 by Jessica Morgan MD) Cerebellar tumor COPD (chronic obstructive pulmonary disease) HTN (hypertension) Meningioma Social History Social History Household Members: None Housing: Homeless Do you presently have visiting nurse or other home services: No Alcohol intake: current Alcohol intake frequency: holidays/special occasions only Smoking Status: Current every day smoker Tobacco Type: Cigarette Packs Per Day: 0.5 Cigarettes Per Day: 10.0 Years Smoked: 50 Smoked in Last 30 Days: Yes Patient Interested in Nicotine Replacement: Yes Patient Given Instructions on How to Stop Smoking: Yes Date Education Initiated: 12/01/20 Second Hand Smoke Exposure: No Use of substances other than those prescribed or required for medical reasons: No Have you been hit, kicked, punched, or otherwise hurt by someone within the past year? If so, by whom?: No Do you feel safe in your current relationship?: No Current Relationship Is there a partner from a previous relationship who is making you feel unsafe now?: No Are you made to feel afraid or neglected: No Advance Directives: No Advance Directives Information Provided: Yes Do you have thoughts of harming others: None Do you have a plan to hurt others: No Plan Recently lost weight without trying: No service: No Current occupational status: retired Meds Allergies Allergy/AdvReac Type Severity Reaction Status Date / Time No Known Allergies Allergy Verified 11/30/20 16:10 [No Known Allergies*] Active Medications: Current Medications Generic Name Dose Route Start Last Admin Trade Name Freq PRN Reason Stop Dose Admin Acetaminophen 650 mg 11/30/20 20:56 Acetaminophen Supp 650 Mg Supp.Rect AK Q6H PRN Pain, Mild (Pain Scale 1-3) Atenolol 25 mg 12/01/20 09:00 12/01/20 09:26 Atenolol 25 Mg Tablet PO Not Given DAILY [facility] Protocol Atorvastatin Calcium 80 mg 12/01/20 09:00 12/01/20 09:26 Atorvastatin Calcium 80 Mg Tablet PO Not Given DAILY [facility] Clonazepam 1 mg 12/01/20 09:00 12/01/20 09:26 Clonazepam 1 Mg Tablet PO Not Given DAILY [facility] Enoxaparin Sodium 40 mg 11/30/20 20:56 11/30/20 22:53 Enoxaparin Sodium 40 Mg/0.4 Ml Syringe SUBCUT 40 mg Q24H [facility] Administration Lisinopril 40 mg 12/01/20 09:00 12/01/20 09:26 Lisinopril 40 Mg Tablet PO Not Given DAILY [facility] Protocol Ondansetron HCl 4 mg 11/30/20 20:56 Ondansetron Hcl 4 Mg/2 Ml Vial IVPUSH Q8H PRN Nausea and Vomiting Pharmacy Consult 1 each 11/30/20 19:04 Consult Rx Perform Med Rec MISCELLANE ONCE PRN Consult order Sodium Chloride 3 ml 12/01/20 00:00 12/01/20 07:37 0.9 % Sodium Chloride Flush 3 Ml Syringe IVFLUSH Not Given QSHIFT [facility] Home Medications Medication Instructions Recorded Confirmed Last Taken Type atenolol 1 tab PO DAILY 11/30/20 11/30/20 11/29/20 History clonazepam 1 tab PO DAILY 11/30/20 11/30/20 11/29/20 History lisinopril 1 tab PO DAILY 11/30/20 11/30/20 11/29/20 History Physical Exam Vital Signs: Vital Signs: Last Vital Signs Temp 97.6 F 12/01/20 15:41 Pulse 66 12/01/20 15:41 Resp 18 12/01/20 15:41 BP 173/66 H 12/01/20 15:41 Pulse Ox 97 12/01/20 15:41 Body Mass Index 22.4 Const: General: cooperative, comfortable, no acute distress, well developed, alert and awake Nutritional Appearance: well nourished Orientation/consciousness: oriented to person, oriented to place and oriented to time Limitations: no limitations HENMT: Head: Yes normal to inspection, Yes normocephalic and Yes atraumatic Ears: hearing grossly normal bilaterally General nose exam: Normal external nose present Face and sinus: Yes normal facial exam Mouth: Normal oral and palatal mucosa present Eyes: General: appearance normal, both eyes and all related structures Visual Knox: normal visual knox by confrontation Alignment and Position: alignment normal Periorbital: periorbital findings normal Eyelids: Yes eyelids normal Conjunctivae: conjunctivae normal Sclerae: sclerae normal Corneas: corneas normal Pupils: Equal, round and reactive pupils present and Pupil accommodation reflex normal EOM: EOMs intact bilaterally Direct Ophthalmoscopy: normal light reflex Neck: Neck: Yes normal visual inspection, Yes full ROM and Yes no meningeal signs Thyroid: Thyroid normal Carotids: normal carotid upstroke and bounding pulses Chest: Chest palpation & inspection: normal inspection of the chest Resp: Effort & Inspection: normal respiratory effort Auscultation: clear to auscultation bilaterally Cardio: Rate: regular rate Rhythm: regular rhythm Heart sounds: S1 normal heart sound present and S2 normal heart sound present Peripheral pulses: Peripheral pulses 2+ throughout GI: Inspection: Yes normal to inspection Percussion: Yes normal to percussion Auscultation: normal bowel sounds Rectal Exam - Female: deferred Back/Spine/Pelvis: Cervical Spine: normal cervical lordosis and cervical ROM normal Thoracic/Lumbar Spine: thoracic and lumbar spine normal to inspection Skin: General skin exam: no rashes or lesions noted Neuro: General: oriented to person, oriented to place, oriented to time, gait normal, tone normal, moves all extremities, Normal light touch and pain sensation, no meningeal signs, no focal motor deficits, CN's II-XI intact bilaterally, normal sensation to monofilament and deep tendon reflexes 2+ bilaterally Cranial nerves: Yes CN's II-XII intact bilaterally, Yes Equal, round and reactive pupils present, Yes Bilaterally intact EOM present, Yes Nystagmus not present, Yes Normal facial strength present, Yes Midline tongue present, Yes Normal gag reflex present, Yes Symmetric palate elevation present, Yes Normal hearing present and Yes Ability to bilaterally rotate head present Cognition (Neuro): normal cognition Speech: Other speech findings present (Neuro) Gait exam (Neuro): Normal gait present Motor exam (neuro): 5/5 motor strength present throughout, Pronator motor function not present, no tremor noted, no asterixis, Motor fasciculations not present, Normal motor muscle tone present throughout and Motor abnormalities not present Sensory Exam: Bilaterally intact graphesthesia Deep tendon reflexes (DTR's): Right triceps reflex intensity grade: 2+, Left triceps reflex intensity grade: 2+, Rt Biceps (C5, C6): 2+, Left biceps reflex intensity grade: 2+, Right brachioradialis reflex intensity grade: 2+, Left brachioradialis reflex intensity grade: 2+, Right patellar reflex intensity grade: 2+, Left patellar reflex intensity grade: 2+, Right ankle reflex intensity grade: 2+ and Left ankle reflex intensity grade: 2+ Plantar Reflex Responses: downgoing: right, left and bilateral Coordination: [id number] test normal, [id number] test normal, tandem gait normal and Romberg test negative Pupils: Normal pupillary reactivity/response: bilateral Extrem: General: Yes normal to inspection, Yes normal exam except as noted and Yes no pedal edema Psych: Appearance: grossly normal Mental Status: mental status grossly normal Speech and movement: Normal speech and movement present and Clear speech present Affect: normal affect Attitude: cooperative Thought process: Normal thought process present Results Labs CBC & Chem 7: 12/01/20 06:35 12/01/20 06:35 Labs: Short CBC 11/30/20 12/01/20 Range/Units 16:58 06:35 WBC 13.5 H 12.6 H (4.8-10.8) X10*3/uL Hgb 14.9 14.0 (12.0-16.0) g/dl Hct 43.4 41.5 (37-47) % Plt Count 219 210 (160-400) X10*3/uL BMP 11/30/20 12/01/20 17:58 06:35 Sodium 139 140 Potassium 4.1 4.0 Chloride 106 113 H Carbon Dioxide 21 L 19 L BUN 16 18 H Creatinine 0.79 0.82 Calcium 9.2 8.6 D Cardiac Enzymes 11/30/20 Range/Units 17:58 Total Creatine Kinase 66 (26-140) U/L Liver Function 11/30/20 Range/Units 17:58 Total Bilirubin 0.6 (0.0-1.0) mg/dL Direct Bilirubin 0.3 (0.0-0.5) mg/dL AST 33 H (5-31) U/L ALT 44 H (0-31) U/L Alkaline Phosphatase 72 (39-117) U/L Albumin 4.1 (3.5-5.0) g/dL Assessment and Plan (1) Cerebrovascular accident: Qualifiers: CVA mechanism: embolism Laterality of affected vessel: left Precerebral and cerebral artery: middle cerebral artery Qualified Code(s): I63.412 - Cerebral infarction due to embolism of left middle cerebral artery Problem details: No definite evidence of a stroke. Exam is nonfocal Status: Acute MRI of the brain to rule out small acute left hemisphere deep lacunar stroke (2) HTN (hypertension): Problem details: Control of blood pressure Status: Acute (3) Meningioma: Problem details: Stable meningioma. No surgical intervention indicated Status: Acute A followup MRI in one year Procedures Date of Service Date of Service: 12/01/20
[2020-12-01 19:16] VITALS: BP 171/64; PULSE 68; RESP 16; TEMP 36; O2SAT 94
--- NOTE | 2020-12-01 20:56 | CA_ITS ---
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 Normal LV systolic function with impaired relaxation filling pattern 2. At least moderate eccentric aortic regurgitation 3. Normal RV systolic pressure 4. No gross pericardial effusion Findings Left Ventricle Normal left ventricular size, thickness, and systolic function. The visually estimated ejection fraction is between 65-70%. Spectral Doppler is indicative of an impaired relaxation filling pattern. E/E prime ratio is between 8 and 15 consistent with indeterminate filling pressures. Right Ventricle Normal right ventricular cavity size and systolic function. Atria The left atrium is normal in size. Interatrial shunt cannot be excluded. The right atrium was not well visualized. Aortic Valve The aortic valve was not well visualized. There is no aortic valve stenosis. There is moderate aortic valve regurgitation. Mitral Valve The mitral valve was not well visualized. There is mild mitral valve regurgitation. There is no mitral valve stenosis. Pulmonic Valve The pulmonic valve was not well visualized. Tricuspid Valve Likely normal tricuspid valve structure and function. There is mild tricuspid valve regurgitation. The right ventricular systolic pressure is normal. The right ventricular systolic pressure is 21 mmHg. Normal right atrial pressure. There is no evidence of pulmonary hypertension. Great Vessels All visible segments of the aorta are normal in size. The pulmonary artery was not well visualized. Venous The inferior vena cava is normal in size and collapses greater than 50% with inspiration. Pericardium/Pleural There is no evidence of pericardial effusion. Prior Study Comparison No prior study available for comparison. Recommendations, Care & Conclusions Recommend contrast study to evaluate intracardiac shunting. Measurements 2D Linear Measurements IVSd: 1.30 0.6-0.9/0.6-1.0 cm LVIDd: 3.39 3.9-5.3/4.2-5.9 cm LVIDd Index: 2.16 2.4-3.2/2.2-3.1 cm/m2 LVIDs: 2.10 2.0-3.6 cm LVPWd: 1.30 0.7-1.1 cm Ao Root: 2.70 2.1-3.5 cm LA Diam: 3.40 2.7-3.8/3.0-4.0 cm LAIDs Index: 2.17 1.5-2.3 cm/m2 LV Mass: 183.00 67-162/88-224 g LV Mass Index: 116.56 43-95/49-115 g/m2 LVOT Diam: 2.00 3.0+(-)1.3 cm Mitral Valve MV Pk E: 0.81 MV PK A: 1.03 MV Decel Time: 165.00 E/A: 0.80 E'Lateral: 9.09 E'Medial: 8.12 E/E' Med: 9.90 E/E' Lat: 8.90 PHT: 48.00 MVA PHT: 4.58 Decel [place]: 4.87 Aortic Valve AoV Pk Abdelrahman: 2.03 AoV Mn Abdelrahman: 1.14 AoV VTI: 0.42 AoV Pk Grad: 16.00 Aov Mn Grad: 7.00 FREDERICK Cont.VTI: 1.98 AI Pk Abdelrahman: 4.91 AI [place]: 4.39 LVOT LVOT Pk Abdelrahman: 1.00 LVOT Mn Abdelrahman: 0.62 LVOT VTI: 0.27 LVOT Pk Grad: 4.00 LVOT Mn Grad: 2.00 LVOT Diam: 2.00 LVOT Area: 3.14 Diastolic Function MV Pk E: 0.81 MV Pk A: 1.03 E/A: 0.80 E'Medial: 8.12 E/E' Med: 9.90 E' Laterial: 9.09 E/E' Lat: 8.90 Tricuspid Valve TR Pk Abdelrahman: 2.10 TR Pk Grad: 18.00 RA Press: 3.00 RVSP: 21.00 Great Vessels Aorta Ao Root-2D: 2.70 2.0-3.7 cm Pulmonary Valve PV Pk Abdelrahman: 1.11 Peak PV Grad: 5.00 Updated in Other Vendor System with Status of Final Omar Miles MD electronically signed on 12/01/2020 5:05:47 PM with status of Final
[2020-12-01] MEDS: Enoxaparin Sodium 40 MG/0.4 ML SYRINGE SUBCUT (21:18)
[2020-12-01 23:52] VITALS: BP 189/67; PULSE 60; RESP 15; TEMP 36.5; O2SAT 95
[2020-12-02] VITALS (8 sets, daily range): BP systolic 141–175; BP diastolic 54–69; PULSE 53–62; RESP 16–19; TEMP 35.5–36.3; O2SAT 94–97
[2020-12-02] MEDS: 0.9 % Sodium Chloride Flush 3 ML SYRINGE IVFLUSH ×4 (00:02→21:22)
[2020-12-02] MEDS: Aspirin 81 MG TAB.CHEW PO (08:19)
[2020-12-02] MEDS: Atorvastatin Calcium 80 MG TABLET PO (08:19)
[2020-12-02] MEDS: clonazePAM 1 MG TABLET PO (08:20)
[2020-12-02] MEDS: atenoloL 25 MG TABLET PO (08:20)
--- NOTE | 2020-12-02 10:55 | MHC.CM.PN ---
Per MD, Patient is not yet ready for dc; Patient needs a MRI. Patient is accepted at her first choice [facility] ([facility]) and CM will follow for dc planning.
--- NOTE | 2020-12-02 16:05 | HO.PM.IMPN ---
Subjective Subjective Date of Service: 12/02/20 Interval History: seen and examined this AM still refusing MRI willing to go to rehab today ROS General - no fevers or chills Cardiovascular - no chest pain Respiratory - no shortness of breath or cough Abdominal- no abdominal pain, nausea, vomiting, diarrhea Physical Exam Vital Signs: Vital Signs: Last Vital Signs Temp 96.5 F L 12/02/20 15:51 Pulse 53 12/02/20 15:51 Resp 19 12/02/20 15:51 BP 141/69 H 12/02/20 15:51 Pulse Ox 94 12/02/20 15:51 Body Mass Index 22.4 Const: Other: General - no acute distress, appears comfortable Cardiovascular - regular rate and rhythm, S1-S2 Lungs - normal respiratory effort, clear to auscultation bilaterally, no wheezing Abdomen - soft, nontender, no rebound or guarding Extremities - no edema bilaterally Neuro - awake and alert, dysarthria, b/l UE strength appears nearly equal; RLE 4+/5; LLE nl Objective Data Current Medications Generic Name Dose Route Start Last Admin Trade Name Freq PRN Reason Stop Dose Admin Acetaminophen 650 mg 11/30/20 20:56 Acetaminophen Supp 650 Mg Supp.Rect ND Q6H PRN Pain, Mild (Pain Scale 1-3) Aspirin 81 mg 12/02/20 09:00 12/02/20 08:19 Aspirin 81 Mg Tab.Chew PO 81 mg DAILY ISAURA Administration Atenolol 25 mg 12/01/20 09:00 12/02/20 08:20 Atenolol 25 Mg Tablet PO 25 mg DAILY ISAURA Administration Protocol Atorvastatin Calcium 80 mg 12/01/20 09:00 12/02/20 08:19 Atorvastatin Calcium 80 Mg Tablet PO 80 mg DAILY ISAURA Administration Clonazepam 1 mg 12/01/20 09:00 12/02/20 08:20 Clonazepam 1 Mg Tablet PO 1 mg DAILY ISAURA Administration Enoxaparin Sodium 40 mg 11/30/20 20:56 12/01/20 21:18 Enoxaparin Sodium 40 Mg/0.4 Ml Syringe SUBCUT 40 mg Q24H ISAURA Administration Lisinopril 40 mg 12/01/20 09:00 12/02/20 08:20 Lisinopril 40 Mg Tablet PO 40 mg DAILY ISAURA Administration Protocol Ondansetron HCl 4 mg 11/30/20 20:56 Ondansetron Hcl 4 Mg/2 Ml Vial IVPUSH Q8H PRN Nausea and Vomiting Pharmacy Consult 1 each 11/30/20 19:04 Consult Rx Perform Med Rec MISCELLANE ONCE PRN Consult order Sodium Chloride 3 ml 12/01/20 00:00 12/02/20 08:21 0.9 % Sodium Chloride Flush 3 Ml Syringe IVFLUSH 3 ml QSHIFT ISAURA Administration Labs CBC & Chem 7: 12/01/20 06:35 12/01/20 06:35 Assessment and Plan (1) Cerebrovascular accident: Status: Acute Assessment and Plan: This is a 65-year-old female with a past medical history of hypertension, HLD who is admitted for acute CVA. 1. Acute CVA presented 24+ hours from symptoms, out of t-PA window asa + statin telemonitor + echo Neurology consult appreciated -- possible small stroke, needs MRI to confirm -- but patient refusing despite multiple attempts at explanation for now PT/OT - acute rehab diet down-graded - MBSS tomorrow 2. HTN lisinopril may need additional meds down the road for tighter control 3. HLD LDL 180 high intensity statin started Full Code DVT pptx, lovenox Dispo: anticipate acute rehab in the next 24-48 hours
[2020-12-02] MEDS: guaiFENesin DM 100/10/5 ML 5 ML SYRUP PO (21:12)
[2020-12-02] MEDS: Enoxaparin Sodium 40 MG/0.4 ML SYRINGE SUBCUT (21:12)
[2020-12-03] VITALS (9 sets, daily range): BP systolic 128–162; BP diastolic 54–72; PULSE 52–67; RESP 16–20; TEMP 36.2–36.8; O2SAT 94–97
--- NOTE | 2020-12-03 05:32 | PM.EVENT ---
Event Note Date of Service: 12/03/20 Event Note: pt reported difficulty swallowing and clear her throat. will make npo and consult speech
--- NOTE | 2020-12-03 06:28 | PC.NURSE ---
pt c/o not able to clear her throat and having trubble with her own saliva she said shes afraid shes going to chokemd notified and shes now NPO UNTILL SWALLOW eval is done she also said shes getting weaker.
[2020-12-03] MEDS: 0.9 % Sodium Chloride Flush 3 ML SYRINGE IVFLUSH (09:04)
--- NOTE | 2020-12-03 10:42 | MHC.SLORD ---
Patient is scheduled for MBSS at 2pm today. Name: Yasmine Gaviria Date of : 1955 Age: 65 Date of Registration: 11/30/20 Speech Language Pathology Order Status:
--- NOTE | 2020-12-03 10:51 | HO.PM.IMPN ---
Subjective Subjective Date of Service: 12/03/20 Interval History: seen and examined this AM worried by her dysphagia ROS General - no fevers or chills Cardiovascular - no chest pain Respiratory - no shortness of breath or cough Abdominal- no abdominal pain, nausea, vomiting, diarrhea Physical Exam Vital Signs: Vital Signs: Last Vital Signs Temp 97.1 F 12/03/20 08:00 Pulse 53 12/03/20 10:35 Resp 16 12/03/20 08:00 BP 162/72 H 12/03/20 10:35 Pulse Ox 94 12/03/20 09:55 Body Mass Index 22.4 Const: Other: General - no acute distress, appears comfortable Cardiovascular - regular rate and rhythm, S1-S2 Lungs - normal respiratory effort, clear to auscultation bilaterally, no wheezing Abdomen - soft, nontender, no rebound or guarding Extremities - no edema bilaterally Neuro - awake and alert, dysarthria, b/l UE strength appears nearly equal; RLE 4+/5; LLE nl Objective Data Current Medications Generic Name Dose Route Start Last Admin Trade Name Freq PRN Reason Stop Dose Admin Acetaminophen 650 mg 11/30/20 20:56 Acetaminophen Supp 650 Mg Supp.Rect ID Q6H PRN Pain, Mild (Pain Scale 1-3) Aspirin 81 mg 12/02/20 09:00 12/03/20 10:34 Aspirin 81 Mg Tab.Chew PO Not Given DAILY ISAURA Atenolol 25 mg 12/01/20 09:00 12/03/20 10:34 Atenolol 25 Mg Tablet PO Not Given DAILY [facility] Protocol Atorvastatin Calcium 80 mg 12/01/20 09:00 12/03/20 10:34 Atorvastatin Calcium 80 Mg Tablet PO Not Given DAILY ISAURA Clonazepam 1 mg 12/01/20 09:00 12/03/20 10:35 Clonazepam 1 Mg Tablet PO Not Given DAILY ISAURA Enoxaparin Sodium 40 mg 11/30/20 20:56 12/02/20 21:12 Enoxaparin Sodium 40 Mg/0.4 Ml Syringe SUBCUT 40 mg Q24H ISAURA Administration Guaifenesin/Dextromethorphan 5 ml 12/02/20 20:45 12/02/20 21:12 Guaifenesin Dm 100/10/5 Ml 5 Ml Syrup PO 5 ml Q6H PRN Administration cough Lisinopril 40 mg 12/01/20 09:00 12/03/20 10:35 Lisinopril 40 Mg Tablet PO Not Given DAILY [facility] Protocol Ondansetron HCl 4 mg 11/30/20 20:56 Ondansetron Hcl 4 Mg/2 Ml Vial IVPUSH Q8H PRN Nausea and Vomiting Pharmacy Consult 1 each 11/30/20 19:04 Consult Rx Perform Med Rec MISCELLANE ONCE PRN Consult order Sodium Chloride 3 ml 12/01/20 00:00 12/03/20 09:04 0.9 % Sodium Chloride Flush 3 Ml Syringe IVFLUSH 3 ml QSHIFT [facility] Administration Labs CBC & Chem 7: 12/01/20 06:35 12/01/20 06:35 Assessment and Plan (1) Cerebrovascular accident: Status: Acute Assessment and Plan: This is a 65-year-old female with a past medical history of hypertension, HLD who is admitted for acute CVA. 1. Acute CVA presented 24+ hours from symptoms, out of t-PA window asa + statin telemonitor + echo Neurology consult appreciated -- possible small stroke, needs MRI to confirm -- but patient refusing despite multiple attempts at explanation for now PT/OT - acute rehab dysphagia persists -- modified barium 2. HTN lisinopril may need additional meds down the road for tighter control 3. HLD LDL 180 high intensity statin started Full Code DVT pptx, lovenox Dispo: anticipate acute rehab once dysphagia issues addressed
[2020-12-03] MEDS: Aspirin 81 MG TAB.CHEW PO (16:15)
--- NOTE | 2020-12-03 17:15 | MHC.SL.IMP ---
Name: Yasmine Gaviria Date of : 1955 Age: 65 Date of Registration: 11/30/20 Date of Plan of Treatment: 12/03/20 Onset of Symptoms/Illness: 12/01/20 Date Treatment Started: 12/01/20 Admitting Diagnosis: Primary (admitting) Diagnosis: Cerebrovascular Accident Year of Onset or Diagnosis: 2020 Comorbidities: Hypertension (I10) Chronic Obstructive Pulmonary Disease (J44.9) Anxiety Past Medical History: Meningioma Cerebellar Tumor Primary Speech & Language Diagnosis: R13.12 Oropharyngeal Phase Dysphagia Secondary Speech & Language Diagnosis: R47.1 Dysarthria Reason for Today's Visit: 17740 Modified Barium Swallow Study Comments: Per RN report, pt coughing with thin liquids. Pre-evaluation Dietary Consistencies: NPO Pre-evaluation Liquid Consistency: NPO Pre-evaluation Medication Administration: NPO Medical History: COPD Other: See below Comments: Anxiety, COPD, meningioma, cerebellar tumor, HTN Oral Motor Exam Facial Symmetry: Symmetrical Facial Movement: Controlled Oral-Facial Facial Miscellaneous Observations: Mouth Occlusion: Normal Oral-Facial Teeth Characteristics: Partially Missing, Edentulous Oral-Facial Lip Pucker Description: Weak Oral-Facial Smile (Lips) Description: Normal Oral-Facial Puff Cheeks Description: Reduced Strength Tongue Size: Normal Tongue Frenum Length: Normal Tongue Excursion Description: Normal Tongue Range of Movement Description: Normal Tongue Speed of Movement Description: Normal Tongue Strength of Movement (against opposing pressure): Normal Tongue Movement Characteristics: Normal/Absent Oral Expression Ability: Mild Impairment. Patient is dysarthric. Is patient able to manage secretions?: Yes Is patient able to produce volitional cough?: Yes Food and Liquid Trials: Oral Impairment: Lip Closure: 1=Interlabial escape; no progression to anterior tip Oral Impairment: Tongue Control During Bolus Hold: 1=Escape to lateral buccal cavity/floor of mouth (FOM) Oral Impairment: Bolus Preparation/Mastication: 2=Disorganized chewing/mashing with solid pieces of bolus Oral Impairment: Bolus Transport/Lingual Motion: 2=Slowed tongue motion Oral Impairment: Oral Residue: 2=Residue collection on oral structures Oral Impairment:Initiation of Pharyngeal Swallow: 3=Bolus head in pyriforms Pharyngeal Impairment: Soft Palate Elevation: 0=No bolus between soft palate (SP)/pharyngeal wall (PW) Pharyngeal Impairment: Larngeal Elevation: 1=Partial thyroid cartilage/arytenoids to epiglottic petiole movement Pharyngeal Impairment: Anterior Hyoid Excursion: 1=Partial anterior movement Pharyngeal Impairment: Epiglottic Movement: 1=Partial inversion Pharyngeal Impairment: Laryngeal Vestibular Closure:: 1=Incomplete: narrow column air/contrast in laryngeal vestibule Pharyngeal Impairment: Pharyngeal Stripping Wave: 1=Present: diminished Pharyngeal Impairment: Pharyngeal Contraction: Did not test Pharyngeal Impairment: Pharyngoesophageal Segment Openin=Partial distention/partial duration: partial obstruction of flow Pharyngeal Impairment: Tongue Base (TB) Retraction: 2=Narrow column of contrast/air between TB and posterior PW Pharyngeal Impairment: Pharyngeal Residue: 2=Collection of residue within or on pharyngeal structures Pharyngeal Impairment: Espohogeal Clearance Upright Position: Did not test Impressions and Recommendations Clinicial Observations: [facility] Results: Lip closure for intraoral bolus containment resulted in interlabial escape, without progression to the anterior lip. Tongue control during bolus hold allowed bolus escape to the lateral buccal cavity/floor of mouth. Bolus preparation and mastication demonstrated disorganized chewing/mashing with solid pieces of the bolus unchewed. Bolus transport/lingual motion was with slowed tongue motion. Oral residue was a collection on oral structures. Initiation of the pharyngeal swallow occurred when the bolus head was in the pyriform sinuses. Soft palate elevation resulted in no bolus between the soft palate and the pharyngeal wall. Laryngeal elevation was decreased, with partial superior movement of the thyroid cartilage/partial approximation of the arytenoids to the epiglottic petiole. Anterior hyoid excursion demonstrated partial anterior movement. Epiglottic movement resulted in partial inversion. Laryngeal vestibular closure was absent, resulting in a wide column of air/contrast within the laryngeal vestibule at the height of the swallow. Pharyngeal stripping wave was present, but diminished. Pharyngeal contraction could not be determined due to logistical reasons not related to physiologic impairment. Pharyngoesophageal segment opening demonstrated partial distension/partial duration, with partial obstruction of bolus flow. Tongue base retraction allowed a narrow column of contrast or air between the retracted tongue base and the posterior pharyngeal wall. Pharyngeal residue was a collection of residue within or on pharyngeal structures. Esophageal clearance in the upright position could not be assessed due to logistical reasons not related to physiologic impairment. Oral Impairment Score: 10 Pharyngeal Impairment Score: 11 (absence of score, component 13) Esophageal Impairment Score: --- (absence of score, component 17) Laryngeal Penetration and Aspiration: Aspiration was observed in today's study. [place]-thick Contrast entered the airway, passed below the vocal folds, and was not ejected from the trachea despite effort. Structural Abnormalities Noted: Cervical Osteophytes noted, but had no functional significance. ASSESSMENT: This exam was conducted by radiologist and speech-language pathologist. Patient was seated at 90 degree angle in chair for lateral view only. Patient was able to feed herself. She trialed the following solid and liquid consistencies: -cup sip nectar thick liquid barium -cup sip honey thick liquid barium -pureed solid (applesauce mixed with barium paste) -ground solid (chicken salad mixed with barium paste) -regular solid (Roberta Doone cookie coated in barium paste) The patient's performance in today's study indicated impairment in the following components of swallowing physiology: ORAL PHASE: -Moderately prolonged mastication -Delayed and slowed AP tongue movement -Mild oral residue coating tongue base -Delayed pharyngeal swallow trigger when bolus head reached the pyriform sinuses PHARYNGEAL PHASE: -Partial laryngeal elevation with partial anterior hyoid movement and partial epiglottic inversion -Incomplete laryngeal vestibular closure -Partial distension/obstruction of flow through pharyngoesophageal segment opening -Mild pharyngeal retention -Diminished pharyngeal stripping wave -Reduced tongue base retraction Patient began with nectar thickened liquids due to overt s/s aspiration with thin liquids during bedside swallow evaluation. Gross aspiration evident with nectar thick liquids. Patient coughed immediately in attempt to remove substance from airway with little success, resulting in a coughing fit. Once recovered, patient was given a sip of honey thickened liquids and tolerated with no aspiration or penetration visualized. Subsequent trials of honey thickened liquids deemed the same results. Patient was observed to take very small bites and talk while food was in her mouth. Patient required frequent verbal cues not to talk while she is eating. At one point she stated, my brain won't let it go down . Good clearance of pureed solids and ground solids was noted. Patient displayed moderately prolonged oral preparatory phase with presentation of cracker. Patient stated that it would be easier if she had her dentures with her, but she left them at home. The following compensatory strategies have not been used until today's study, but when employed, improved swallowing function: Honey-thick Liquid decreased Penetration Patient history with the following compensatory strategies is unknown. When employed during today's study, these strategies improved swallowing function: Head Extension decreased Oral Residue PLAN: Route: PO Diet Grade: National Dysphagia Diet: GROUND/MECH ALTERED (NDD2) Liquid Consistencies: HONEY THICK Post-Study Functional Oral Intake Scale (FOIS): 5- Total oral intake of multiple consistencies requiring special preparation Therapy Recommendations: Therapy will be continued The following compensatory strategies and/or therapeutic exercises will be part of the upcoming therapy/management plan: -Honey-thick Liquid -Ground/mech altered solids -alternate solids with liquids -moisten solids with sauces and gravy for ease of mastication -small bites and sips -NO straws -avoid sticky and dry foods -avoid mixed consistencies (i.e. cereal) -patient must remain upright at 90 degrees when eating and drinking -patient must remain upright for 30 minutes following meal times to reduce risk of aspiration. Short Term Goals: ? Guidelines - The patient will comply with/recall the following guidelines/strategies 100% of the time with minimal cuing: Honey-thick Liquid, Bolus Volume Change, Rate of Ingestion Change. ? Education - The patient, family, caregiver, treating investigation clerk, nurse, physician will verbalize/demonstrate understanding of the results of this evaluation, the above recommendations, and the swallowing guidelines. Clinician - Supplemental, Miscellaneous Communication: It is important to note MBSS objective studies are snapshots in time and patient function might vary with factors such as time of day or concomitant medical conditions. For this reason, the final treatment plan for this patient should rest with their medical care team. Additional recommendations should be considered with the totality of the patient in mind. Thank you for the opportunity to participate in the care of this patient. If you have and questions about the contact of this report, please contact the [facility] at [facility]. Education: Education regarding findings from today's study and plans for therapy were provided to Patient only through Verbal Instruction, Written Instruction, Demonstration. Understanding was expressed by the Patient only. Handouts regarding diet recommendations, thickened liquids, ground/mech altered solids were provided and explained in detail. Patient expressed understanding. Liquid Intake Recommendation: Honey Thick Liquid Intake Strategies: Small Sips, No Straws Dietary Recommendations: Grnd/Mech Altered (NDD2) Medication Administration: Crushed with Puree Compensatory Strategies Recommended: Sitting Upright (90 deg) No Straw Liquids from Cup Small Bites and Sips Alternate Liquids/Solids Rate of Ingestion Change Avoid Specific Foods Supervision during eating and or drinking: Intermittent Supervision Recommended Treatments: Compens. Strategy Educat. Recommendation for Speech Therapy: Speech Therapy through Rehab Facility Modified Barium Swallow Study - Outpatient Text Comment: Continued speech therapy to target dysarthria, pharyngeal strengthening exercises, and to ensure compliance to modified diet recommendations. Frequency/Duration: Date Range for Service Requested: Timeline to reassess: Repeat MBSS in 12-16 weeks to check for improvement in swallowing function. Contract Post Office Clerk Clinican/Clinical Fellow: Yes: Ofe Sullivan M.A., CF-DIGESTION OPERATOR Supervisory Statement: Yes Speech Language Pathologist: Amrita Oliva M.A., CCC-DIGESTION OPERATOR
[2020-12-03] MEDS: Enoxaparin Sodium 40 MG/0.4 ML SYRINGE SUBCUT (20:10)
[2020-12-04] VITALS (8 sets, daily range): BP systolic 119–159; BP diastolic 52–84; PULSE 51–59; RESP 18–20; TEMP 36.4; O2SAT 94–98
[2020-12-04] MEDS: 0.9 % Sodium Chloride Flush 3 ML SYRINGE IVFLUSH ×2 (01:14→08:28)
[2020-12-04] MEDS: atenoloL 25 MG TABLET PO (08:28)
[2020-12-04] MEDS: Atorvastatin Calcium 80 MG TABLET PO (08:28)
[2020-12-04] MEDS: Aspirin 81 MG TAB.CHEW PO (08:28)
[2020-12-04] MEDS: clonazePAM 1 MG TABLET PO (08:29)
--- NOTE | 2020-12-04 10:46 | PM.DS ---
DS: Providers Provider Date of Service: 12/04/20 Date of admission: 11/30/20 22:46 Primary care physician: Miranda Anguiano MD Consults: 12/01/20 08:21 Consult to Neurology Routine Consulting Provider: Sole Lam Reason for consultation: stroke DS: Diagnosis Discharge Diagnosis (1) Meningioma: Status: Acute (2) HTN (hypertension): Status: Acute (3) COPD (chronic obstructive pulmonary disease): Status: Acute (4) Acute lacunar stroke: Status: Acute DS: Medications Discharge Medications Home Medications: Home Medications Medication Instructions Recorded Confirmed clonazepam 1 tab PO DAILY 11/30/20 11/30/20 lisinopril 1 tab PO DAILY 11/30/20 11/30/20 Previous Rx's Medication Instructions Recorded amlodipine 5 mg PO DAILY #30 tab 12/04/20 aspirin 81 mg PO DAILY #30 tab 12/04/20 atorvastatin 80 mg PO DAILY #30 tab 12/04/20 DS: Summary Hospital Course Hospital Course: Patient presented with signs and symptoms suggestive of acute stroke. She was admitted and underwent further workup which included a neurology evaluation and a CTA of the head and neck which showed: IMPRESSION: CT head and neck: 1. The study redemonstrates a right CP angle meningioma which appears stable in size compared to prior imaging. 2. There are no acute bleeds or territorial infarcts. 3. There is diffuse volume loss and there are chronic microvascular ischemic changes. 4. There are sequelae of bilateral mastoid surgery. 5. The thyroid gland is mildly prominent with heterogenous attenuation. There are emphysematous changes in the lungs bilaterally. CTA head and neck: 1. CTA of the cervical arterial structures is normal. There is no flow-limiting stenosis. 2. Intracranially, there is moderate narrowing of the distal M1 segment of the right middle cerebral artery. 3. No vascular malformations or aneurysms are demonstrated. Neurology felt that she did not have any definitive evidence on the exam to suggest an acute stroke and recommended MRI to rule out a small lacunar infarct. The patient refused this due to her claustrophobia despite offering her anxiolytics. Her hospital course was further complicated by worsening of her dysphagia and she was evaluated with a modified barium swallow. Recommendations post this study were for mechanical/ground (NDD2) solids with honey thick liquids. Additionally, in regards for blood pressure she was treated with her baseline lisinopril and atenolol. Atenolol was discontinued due to bradycardia. Instead she will be started on Norvasc at the time of discharge. This can be up titrated as needed. Lastly, patient's known meningioma was stable on the CTA. Neurology recommended MRI in 1 year as she normally does as an outpatient (open MRI). Time Spent with Patient Time attestation: Total time spent providing and/or coordinating discharge services: Discharge coordination time: Greater than 30 minutes Quality: Stroke Pt Provided Written Stroke Discharge Instructions: Patient given written information Physical Exam Vital Signs: Vital Signs: Last Vital Signs Temp 97.6 F 12/04/20 07:56 Pulse 59 12/04/20 10:03 Resp 18 12/04/20 07:56 BP 159/55 H 12/04/20 10:03 Pulse Ox 98 12/04/20 07:56 Body Mass Index 22.4 Const: Other: General - no acute distress, appears comfortable Cardiovascular - regular rate and rhythm, S1-S2 Lungs - normal respiratory effort, clear to auscultation bilaterally, no wheezing Abdomen - soft, nontender, no rebound or guarding Extremities - no edema bilaterally Neuro - awake and alert, dysarthria, b/l UE strength appears nearly equal; RLE 4+/5; LLE nl DS: Data Data Completed and Pending Labs on day of discharge: 12/01/2019 Sodium 140 Potassium 40 Chloride 113 Bicarb 19 BUN 18 Creatinine 0.82 Triglyceride 77 Total cholesterol 242 LDL 181 HDL 46 WBC 12.6 Hemoglobin 14 Hematocrit 41 Platelets 210 Discharge Plan Discharge Patient Disposition: Xfer Inpatient Rehab Fac Referrals: Miranda Anguiano MD [Primary Care Provider] - Discharge Medications: New atorvastatin 80 mg Tablet 80 mg PO DAILY Qty: 30 RF: 0 aspirin 81 mg Tablet,Chewable 81 mg PO DAILY Qty: 30 RF: 0 amlodipine 5 mg tablet 5 mg PO DAILY Qty: 30 RF: 0 Continued clonazepam 1 mg tablet 1 tab PO DAILY RF: 0 lisinopril 40 mg tablet 1 tab PO DAILY RF: 0 Discontinued atenolol 25 mg tablet 1 tab PO DAILY RF: 0 Discharge Orders: Discharge Order (Routine); Ordered 12/04/20 Ordered By: Saturnino Gonzalez Diet: other Activity on Discharge: As tolerated Stand Alone Forms: Patient Portal Discharge page Care Plan Goals: To stay healthy and out of the hospital. Health Concerns: Probable Acute Stroke Meningioma Hypertension Plan of Treatment: Take aspirain 81 mg daily Take lipitor 80mg daily Take lisinopril for your blood pressure, stop taking atenolol due to slow heart rate. You will be started on norvsac 5mg.
--- NOTE | 2020-12-04 11:43 | MHC.CM.PN ---
Patient has been medically cleared for dc to Acute Rehab today. Patient will dc to her first choice facility- [facility] at 2 PM, via [facility]. Patient is aware of and in agreement with the dc plan; second IMM addressed with her and original was given to her and a copy has been placed on the chart.CM has also informed Patient's Niece/Candy at [phone], of the dc plan.
[2020-12-04 13:16] LABS: COVID-19 Test Negative (Negative)
== END 2020-12-04 14:15 | DRG 65 ==
LOC: HO.ED 20:57 → HO.EDOVER 12-01 07:03 → HO.IMC 12-01 07:20
PROVIDERS: Admitting Provider Internal Medicine; Emergency Provider Internal Medicine; PCP Student in an Organized Health Care Education/Training Program; Visit Provider Family Medicine
DX: I63.412 Cerebral infarction due to embolism of left middle cerebral artery (principal); G81.91 Hemiplegia, unspecified affecting right dominant side; F17.210 Nicotine dependence, cigarettes, uncomplicated; E78.5 Hyperlipidemia, unspecified; R13.10 Dysphagia, unspecified; I10 Essential (primary) hypertension; D32.9 Benign neoplasm of meninges, unspecified; R47.1 Dysarthria and anarthria; F41.9 Anxiety disorder, unspecified; R29.704 NIHSS score 4; J44.9 Chronic obstructive pulmonary disease, unspecified; Z20.822 Contact with and (suspected) exposure to COVID-19; Z79.82 Long term (current) use of aspirin; Z79.899 Other long term (current) drug therapy
CPT/HCPCS: 36415; 70496; 70498; 71045; 74230; 80048; 80061; 80076; 82550; 82947; 84484; 85025; 85610; 85730; 87635; 92610; 92611; 93005; 93306; 96360; 97110; 97112; 97116; 97163; 97166; 97535; 99285; J1650; Q9967

== ENCOUNTER → 2021-09-09 13:39 | Outpatient (BNVA) | payer MEDICARE, MEDICAID, SELFPAY | PROVIDERS: PCP Student in an Organized Health Care Education/Training Program; Visit Provider Internal Medicine | DX: J44.9 Chronic obstructive pulmonary disease, unspecified (principal); F17.200 Nicotine dependence, unspecified, uncomplicated | CPT/HCPCS: 99202 ==

== ENCOUNTER 2022-03-25 11:48 | Outpatient (REF) | payer MEDICARE, MEDICAID, SELFPAY ==
--- NOTE | ~2022-03-25 | MM_ITS ---
EXAMINATION: MM SCREENING DIGITAL BREAST TOMOSYNTHESIS, BILATERAL CLINICAL INFORMATION: Screening. Asymptomatic. The lifetime risk of breast cancer based on the Tyrer-Cuzick Model is 3%. COMPARISON: Mammography: 11/22/2016, 05/14/2015, 11/19/2013, 03/13/2013; ultrasound right breast 01/09/2012. TECHNIQUE: Digital breast tomosynthesis is performed in both the craniocaudal and mediolateral oblique views along with computer-aided detection (CAD). Synthesized 2D images are generated from the tomosynthesis. FINDINGS: There are scattered areas of fibroglandular density (ACR BI-RADS breast composition Category b). There are minor fibrocystic changes with small waxing and waning nodularity since 2012. No significant changes on left. Right breast has dominant nodule 0.7 cm posterior 9:00 position on MLO view, only partially imaged on CC projection. Margins appear smooth macrolobulated. Patient will be recalled for additional imaging. No architectural abnormality. There are some fine calcifications central left breast and outer right breast similar to prior exam. The axilla and skin contours are unremarkable. MM/MM tomosynthesis screening BI IMPRESSION: Right: -Dominant nodule posterior 9:00 right breast, 0.7 cm. Left: -No significant changes from prior studies. ASSESSMENT: BI-RADS 0: Incomplete - Need Additional Imaging Evaluation RECOMMENDATION: 1. Additional views of the right breast (exaggerated CC). 2. Targeted ultrasound right breast. 3. Radiology department staff will contact the patient for additional imaging. This patient's information was entered into a reminder system with a target due date for their next mammogram.
[2022-03-25 13:12] LABS: Hematocrit 45.3 % (37.0-47.0); Hemoglobin 15.6 g/dl (12.0-16.0); Mean Corpuscular HGB Conc 34.4 g/dl (31.0-35.0); Mean Corpuscular Hemoglobin 32.2 pg (27.0-33.0); Mean Corpuscular Volume 93.6 fL (80.0-98.0); Mean Platelet Volume 10.1 fL (9.4-12.3); Platelet Count 273 X10*3/uL (160-400); Red Blood Count 4.84 X10*6/uL (4.20-5.50); Red Cell Distribution Width 12.6 % (11.0-16.0); White Blood Count 10.4 X10*3/uL (4.8-10.8)
[2022-03-25 13:39] LABS: Alanine Aminotransferase 32 U/L (0-31); Albumin Level 4.3 g/dL (3.5-5.0); Alkaline Phosphatase 110 U/L (39-117); Anion Gap 14 (12-20); Aspartate Amino Transferase 26 U/L (5-31); Bilirubin Direct 0.3 mg/dL (0.0-0.5); Bilirubin Total 0.8 mg/dL (0.0-1.0); Blood Urea Nitrogen 12 mg/dL (9-16); Calcium 9.7 mg/dL (8.4-10.2); Carbon Dioxide 26 mmol/L (22-29); Chloride 104 mmol/L (96-108); Cholesterol 171 mg/dL; Estimated Glomerular Filt Rate 59; Glucose Random 110 mg/dL (60-115); HDL Cholesterol 52 mg/dL; LDL Cholesterol Calculated 97 mg/dl; Potassium 4.6 mmol/L (3.3-5.1); Sodium 139 mmol/L (135-145); Total Protein 7.2 g/dL (6.5-8.0); Triglycerides 112 mg/dL
[2022-03-25 14:04] LABS: Vitamin D 25-OH Total 21.1 ng/mL (>30)
== END 2022-03-25 11:49 | disposition home or self-care (01) ==
LOC: HO.MAMMO 11:48
PROVIDERS: PCP Student in an Organized Health Care Education/Training Program; Visit Provider Student in an Organized Health Care Education/Training Program
DX: Z12.31 Encounter for screening mammogram for malignant neoplasm of breast (principal); E78.5 Hyperlipidemia, unspecified; I10 Essential (primary) hypertension
CPT/HCPCS: 36415; 77063; 77067; 80048; 80061; 80076; 82306; 85027

== ENCOUNTER 2022-04-01 14:19 | Outpatient (REF) | payer MEDICARE, MEDICAID, SELFPAY ==
--- NOTE | ~2022-04-01 | MM_ITS ---
EXAMINATION: MM DIAGNOSTIC DIGITAL BREAST TOMOSYNTHESIS, RIGHT US BREAST TARGETED, RIGHT CLINICAL INFORMATION: Right breast lobular density upper outer aspect. COMPARISON: Mammography: 03/25/2022 and studies dating back to 09/20/2010. TECHNIQUE: Digital breast tomosynthesis is performed. 2D images are generated from the tomosynthesis. The following views are obtained: Exaggerated craniocaudal view as well as spot magnification views of the right breast in craniocaudal and 90 degree mediolateral views. Targeted right breast ultrasound. FINDINGS: There are scattered areas of fibroglandular density (ACR BI-RADS breast composition Category b). Additional views demonstrate persistence of the approximately 7 x 7 mm density within the upper outer aspect of the right breast which has a somewhat lobular contour. There are also noted to be a few groupings of calcifications and therefore spot magnification views were performed. There are numerous fine calcifications present most prominent within the upper outer aspect of the right breast. On 90 degree mediolateral view a few calcifications layer with the majority not layering. These calcifications have a similar appearance to previously worked up left breast calcifications and a 6-month followup right breast mammogram with magnification views is recommended for follow up of the calcifications. Targeted right breast ultrasound demonstrates a cyst with either septation or a few adjacent cysts at the 9 o'clock position 6 cm from the nipple with similar appearance to the mammographic finding. There is a thin septation without internal vascularity. There is increased through sound transmission. There are a few adjacent calcifications present. Results are discussed with the patient at time of visit. MM/MM tomosynthesis added views R IMPRESSION: Mammographic density corresponds to either bilobed cyst with septation or adjacent cysts. Calcifications of the right breast for which 6-month follow up magnification views are recommended. ASSESSMENT: BI-RADS 3: Probably Benign RECOMMENDATION: Diagnostic mammography in 6 months. This patient's information was entered into a reminder system with a target due date for their next mammogram.
== END 2022-04-01 14:20 | disposition home or self-care (01) ==
LOC: HO.MAMMO 14:19
PROVIDERS: PCP Student in an Organized Health Care Education/Training Program; Visit Provider Student in an Organized Health Care Education/Training Program
DX: R92.2 Inconclusive mammogram (principal)
CPT/HCPCS: 76642; 77061; 77065

== ENCOUNTER 2022-08-30 13:12 | Outpatient (REF) | payer MEDICARE, MEDICAID, SELFPAY ==
--- NOTE | ~2022-08-30 | MM_ITS ---
EXAMINATION: MM DIAGNOSTIC DIGITAL BREAST TOMOSYNTHESIS, RIGHT CLINICAL INFORMATION: Short interval six-month follow-up probable benign calcifications right breast. The lifetime risk of breast cancer based on the Tyrer-Cuzick Model is 3%. COMPARISON: Mammography: 04/01/2022, 03/25/2022 (diagnostic, BI-RADS 3), 03/25/2022, 11/22/2016, ultrasound right breast 04/01/2022 TECHNIQUE: Digital breast tomosynthesis is performed in both the craniocaudal and mediolateral oblique views along with computer-aided detection (CAD). Synthesized 2D images are generated from the tomosynthesis. Additional magnification right CC and magnification right ML views are obtained. FINDINGS: There are scattered areas of fibroglandular density (ACR BI-RADS breast composition Category b). There is nodule posterior 9:00 right breast corresponding to the cyst noted on prior imaging. There is no developing density or interval architectural abnormality. There are benign-appearing scattered regional round calcifications again seen in the central outer right breast similar to prior magnification views. Calcifications may be reassessed again at time of annual bilateral mammography, due in 6 months. Results are provided to the patient at time of visit by the technologist. MM/MM tomosynthesis diagnostic RT IMPRESSION: -Benign-appearing regional round calcifications central outer right breast similar to prior diagnostic exam. ASSESSMENT: BI-RADS 3: Probably Benign RECOMMENDATION: Magnification views right breast at time of annual bilateral mammography, due in 6 months. This patient's information was entered into a reminder system with a target due date for their next mammogram.
== END 2022-08-30 13:13 | disposition home or self-care (01) ==
LOC: HO.MAMMO 13:12
PROVIDERS: Visit Provider Student in an Organized Health Care Education/Training Program
DX: R92.1 Mammographic calcification found on diagnostic imaging of breast (principal)
CPT/HCPCS: 77061; 77065

== ENCOUNTER 2023-08-28 10:36 | Outpatient (REF) | payer MEDICARE, MEDICAID, SELFPAY ==
[2023-08-28 15:00] LABS: Alanine Aminotransferase 25 U/L (0-31); Albumin Level 4.2 g/dL (3.5-5.0); Alkaline Phosphatase 94 U/L (39-117); Anion Gap 11 (12-20); Aspartate Amino Transferase 24 U/L (5-31); Bilirubin Direct 0.2 mg/dL (0.0-0.5); Bilirubin Total 0.7 mg/dL (0.0-1.0); Blood Urea Nitrogen 13 mg/dL (9-16); Calcium 9.8 mg/dL (8.4-10.2); Carbon Dioxide 26 mmol/L (22-29); Chloride 104 mmol/L (96-108); Cholesterol 178 mg/dL (<200); Estimated Glomerular Filt Rate > 60; Glucose Random 100 mg/dL (60-115); HDL Cholesterol 58 mg/dL (>40); LDL Cholesterol Calculated 99 mg/dL (<100); Potassium 3.8 mmol/L (3.3-5.1); Sodium 137 mmol/L (135-145); Total Protein 7.3 g/dL (6.5-8.0); Triglycerides 108 mg/dL (<150)
== END 2023-08-28 10:37 | disposition home or self-care (01) ==
LOC: HO.CHCLDS 10:36
PROVIDERS: Visit Provider Student in an Organized Health Care Education/Training Program
DX: I10 Essential (primary) hypertension (principal)
CPT/HCPCS: 36415; 80048; 80061; 80076

== ENCOUNTER 2024-03-20 14:04 | Outpatient (REF) | payer MEDICARE, MEDICAID, SELFPAY ==
--- NOTE | ~2024-03-20 | MM_ITS ---
EXAMINATION: MM DIAGNOSTIC DIGITAL BREAST TOMOSYNTHESIS, BILATERAL CLINICAL INFORMATION: 6 month follow-up for right breast ossifications upper outer quadrant, middle one third. Patient also due for bilateral screening. Patient is late for six-month follow-up due to a stroke. This will establish a two-year stability if calcifications are stable. COMPARISON: Mammography: 08/30/2022, 04/01/2022, 03/25/2022 (diagnostic, BI-RADS 3), 03/25/2022, 11/22/2016, ultrasound right breast 04/01/2022 TECHNIQUE: Digital breast tomosynthesis is performed in both the craniocaudal and mediolateral oblique views along with computer-aided detection (CAD). Synthesized 2D images are generated from the tomosynthesis. In addition, 2-D spot magnification right CC and ML views were obtained. FINDINGS: There are scattered areas of fibroglandular density (ACR BI-RADS breast composition Category b). Calcifications in the upper outer right breast, middle one third, remains unchanged without aggressive features, predominantly punctate and round, with regional loose grouping. These have been unchanged since 03/25/2022 and are thus benign. No further follow-up recommended. There is a stable lobular mass representing a cluster of cysts in the posterior lateral right breast, 9:00 axis. In the left breast at the 11:30 o'clock axis, posterior one third, there is a lobular mass. Similar to the finding on the right breast. This finding is also a unchanged from 03/25/2022, establishing benignity. There are a few scattered non-grouped calcifications in the central left breast as well. There is otherwise no developing mass, new suspicious calcifications, or developing area of architectural distortion in either breast. Parenchymal pattern is stable from prior exams. There is no skin or axillary abnormality of suspicion. MM/MM tomosynthesis diagnostic BI IMPRESSION: -There are no findings suspicious for malignancy in either breast. There are stable benign findings as described above. -Calcifications in the upper outer right breast are unchanged and stable over 2 years, hence benign. No further follow-up recommended. -Lobular masses in both breasts are also stable and benign. Recommend the patient return to routine annual screening. ASSESSMENT: BI-RADS BI-RADS 2 - Benign Findings RECOMMENDATION: 1 year F/U Results were provided to the patient at time of visit by the technologist. This patient's information was entered into a reminder system with a target due date for their next mammogram.
== END 2024-03-20 14:05 | disposition home or self-care (01) ==
LOC: HO.MAMMO 14:04
PROVIDERS: PCP Student in an Organized Health Care Education/Training Program; Visit Provider Student in an Organized Health Care Education/Training Program
DX: R92.1 Mammographic calcification found on diagnostic imaging of breast (principal)
CPT/HCPCS: 77062; 77066

== ENCOUNTER → 2024-03-20 14:30 | Outpatient (BNV) | payer MEDICARE, MEDICAID, SELFPAY | PROVIDERS: PCP Student in an Organized Health Care Education/Training Program; Visit Provider Radiology Diagnostic Radiology | DX: R92.1 Mammographic calcification found on diagnostic imaging of breast (principal) | CPT/HCPCS: 77066; G0279 ==

== ENCOUNTER 2024-04-08 10:55 | Emergency (ER) | payer MEDICARE, MEDICAID, SELFPAY ==
--- NOTE | ~2024-04-08 | XR_ITS ---
EXAMINATION: XR ELBOW, RIGHT CLINICAL INFORMATION: Right elbow injury and pain COMPARISON: None available. TECHNIQUE: AP, lateral, and oblique views of the right elbow. FINDINGS: BONES: Bony structures are intact. Bony spur is seen in the right humeral medial epicondyle and dorsal tip of right olecranon process. There is no focal bone destruction or periosteal reaction seen. JOINTS: Alignment of joints is normal. SOFT TISSUE: Soft tissue is normal. No radiopaque foreign body or abnormal air collection is seen. XR/XR elbow RT min 3V IMPRESSION: 1. Right humeral medial epicondyle and dorsal right olecranon traction enthesopathy is seen. 2. No fracture or dislocation or signs of osteomyelitis are found.
--- NOTE | ~2024-04-08 | XR_ITS ---
EXAMINATION: XR ELBOW, LEFT CLINICAL INFORMATION: Left elbow injury and pain COMPARISON: None available. TECHNIQUE: AP, lateral, and oblique views of the left elbow. FINDINGS: BONES: Bony structures are intact. A small bone spur is seen in the left humeral medial epicondyle. There is no focal bone destruction or periosteal reaction seen. JOINTS: Alignment of joints is normal. SOFT TISSUE: Soft tissue calcification is seen at the dorsal left olecranon process over the site of triceps tendon insertion. No radiopaque foreign body or abnormal air collection is seen. XR/XR elbow LT min 3V IMPRESSION: 1. Left humeral lateral condyle traction enthesopathy is seen. 2. Findings could represent left triceps calcific tendinitis. 3. No fracture or dislocation or signs of osteomyelitis are found.
--- NOTE | ~2024-04-08 | CT_ITS ---
EXAMINATION: CT HEAD WITHOUT CONTRAST CT CERVICAL SPINE WITHOUT CONTRAST CLINICAL INFORMATION: Pain. Fall. COMPARISON: None. TECHNIQUE: Contiguous axial imaging was performed from the skullbase to vertex without intravenous administration of contrast. Multidetector helical imaging was performed through the cervical spine. This CT examination was performed using dose optimization techniques as appropriate, variously including the following: *Automated exposure control *Adjustment of mA and/or kV according to patient size (this includes techniques or standardized protocols for targeted exams where dose is matched to indication/reason for exam; i.e. extremities or head) *Use of iterative reconstruction technique DLP: 618, 263 mGy-cm. FINDINGS: HEAD: There is no evidence of acute intracranial hemorrhage or territorial infarction. No midline shift is seen. Canas to white matter differentiation is well preserved. No extra-axial fluid collections are identified. A partially calcified, extra-axial mass along the dorsal right petrous bone and chronically distorting the right aspect of the gurmeet remains stable, measuring approximately 2.2 x 2.5 cm in size. This lesion enhanced on prior CT angiography from 11/30/2020 and is consistent with a meningioma. Moderate generalized brain parenchymal volume loss and mild chronic white matter microangiopathy are stable with commensurate ex vacuo prominence of the ventricles. The visualized portions of the paranasal sinuses are fairly well aerated with a chronic 1.1 cm osteoma in the inferior left frontal sinus. There are chronic right-sided post mastoidectomy changes with retraction and thickening of the right tympanic membrane and nonspecific soft tissue attenuation in the middle ear cavity which may reflect the sequelae of chronic otomastoiditis. Left-sided canal wall up post mastoidectomy changes are also visible with now complete soft tissue opacification of the mastoidectomy bowl and left middle ear cavity. An ossicular reconstruction prosthesis is visible, though the piston portion of the prosthesis is angulated and directed posteriorly towards the bony wall of the oval window niche and does not clearly articulate with the oval window. CERVICAL SPINE: No acute fracture or subluxation is identified in the cervical spine. The disc spaces are maintained. Anterior endplate ridging ossific spurring visible at the C5-C6 level. There is a rightward curvature of the cervical spine. There is moderate left-sided facet arthropathy at the C2-C3 level. Moderate degenerative changes also evident at the odontoid tip. The atlantoaxial articulation is normally maintained. The paraspinal soft tissues are normal. A 1.6 x 0.9 cm lobulated nodular lesion in the left parotid tail has mildly enlarged compared to prior imaging, having measured 1.3 x 0.6 cm on the 11/30/2020 exam. There is a 0.6 cm nodule at the left lung apex which is further assessed on the patient's dedicated chest CT study. This finding is not visible on a prior CT exam from 11/30/2020. An additional suspicious 1 cm nodule is visible in the right perihilar region on the patient's chest CT from 04/08/2024. Emphysematous changes are visible in the lungs. CT/CT cervical spine wo IV con IMPRESSION: 1. No acute intracranial pathology. Stable chronic white matter microangiopathy and moderate generalized brain parenchymal volume loss. 2. 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 3. Worsened soft tissue opacification of the patient's left mastoidectomy defect and left middle ear cavity, for which the possibility of an underlying recurrent cholesteatoma cannot be ruled out. Additional abnormal angulation of an ossicular prosthesis, which may not optimally contact the oval window; clinically correlate. Recommend ENT follow-up evaluation to guide further management. 4. No evidence of acute cervical spine traumatic injury. 5. Mild interval increase in size of a 1.6 x 0.9 cm lobulated nodular lesion in the left parotid tail when compared to imaging from 11/30/2020. 6. Emphysematous changes in the lungs with a 0.6 cm nodule at the left lung apex, further assessed on the patient's dedicated chest CT study acquired contemporaneously on the same day and not present on a prior chest CT from 11/30/2020. Of note a suspicious 1 cm nodule is visible in the right upper lobe in the perihilar region on the patient's chest CT from 04/08/2024. Findings suspicious for potential malignancy. Imaging findings reported to BLAIR Gerard at 2:10 PM on 04/08/2024.
--- NOTE | ~2024-04-08 | CT_ITS ---
EXAMINATION: CT CHEST WITHOUT CONTRAST CLINICAL INFORMATION: Fall with pain COMPARISON: CT chest 09/11/2019 TECHNIQUE: Multidetector volumetric CT imaging of the chest was done. Axial MIP volume rendering provided. Sagittal and coronal reformatted images were obtained. This CT examination was performed using dose optimization techniques as appropriate, variously including the following: *Automated exposure control *Adjustment of mA and/or kV according to patient size (this includes techniques or standardized protocols for targeted exams where dose is matched to indication/reason for exam; i.e. extremities or head) *Use of iterative reconstruction technique DLP: 12 7 mGy-cm FINDINGS: LUNGS: There is a new 1 cm mildly spiculated mass seen in the perihilar region in the right upper lobe (23:181+ [place] images). There is a new left apical 6 mm pulmonary nodule (23:77). There is an unchanged 4 mm right upper lobe nodule (23:143 compare prior 5:114) along with a 2 mm lateral upper lobe nodule (23:168 compare prior 5:139. MEDIASTINUM: The mediastinum is normal. CORONARY ARTERY CALCIFICATION: Mild to moderate PLEURA: There is no pleural effusion. No pleural mass or thickening. AXILLA: No lymphadenopathy. UPPER ABDOMEN: There is a 2.1 cm right adrenal mass which measures fat density consistent with a benign adenoma which is slightly larger in size and in 2019. No additional imaging or follow-up is needed. OSSEOUS STRUCTURES: There is a minimally displaced acute fracture of the left 9th posterolateral rib. No other rib fractures are seen. No bony destructive lesions are seen. CT/CT chest wo IV con IMPRESSION: 1. Acute minimally displaced left 9th rib fracture. 2. New 1 cm right upper lobe pulmonary mass and new 6 mm left apical pulmonary nodule. The1 cm lesion with spiculated margins is especially suspicious for malignancy. 3. Other incidental findings as described above. According to the UPDATED 2017 Fleischner Society recommendations, the advised follow-up imaging for a single solid nodule measuring greater than [address] at 3 months, PET/CT, or tissue sampling as clinically appropriate.
[2024-04-08 11:33] VITALS: BP 134/62; PULSE 93; RESP 14; TEMP 36.1; O2SAT 99; BMI 22.7
--- NOTE | 2024-04-08 11:39 | ED.GENADULT ---
HPI - General Adult General Chief complaint: Fall Stated complaint: fell down stair 6 29 rib inj Time Seen by Provider: 04/08/24 15:17 Source: patient Mode of arrival: ambulatory Limitations: no limitations History of Present Illness ED Provider: evonne CHE narrative: Patient is a 69-year-old female presenting to the emergency department with complaint of left posterior rib pain after a fall on Monday. She states that she lost her balance and fell down 2 concrete stairs, landing on her left posterior ribs on the edge of the step. She reports positive head strike but denies loss of consciousness. Denies neck or back pain. Denies headache, vision changes, dizziness or lightheadedness. She is not anticoagulated. Does report a baseline nonproductive cough and states pain increases with coughing. MD complaint: rib pain Onset (ago): day(s) Severity: severe Quality: aching Pain Consistency: constant Relieving factors: rest Exacerbating factors: movement and other (coughing) Associated symptoms: denies other symptoms Treatments prior to arrival: none Related Data Home Medications ?Medication ?Instructions ?Recorded ?Confirmed clonazepam 1 mg tablet 1 tab PO DAILY 11/30/20 11/30/20 lisinopril 40 mg tablet 1 tab PO DAILY 11/30/20 11/30/20 albuterol sulfate 90 mcg/actuation inhalation 09/09/21 aerosol inhaler (Ventolin HFA) fluticasone furoate 200 inhalation 09/09/21 mcg-vilanterol 25 mcg/dose inhalation powder (Breo Ellipta) Previous Rx's ?Medication ?Instructions ?Recorded amlodipine 5 mg tablet 5 mg PO DAILY #30 tabs 12/04/20 aspirin 81 mg chewable tablet 81 mg PO DAILY #30 tabs 12/04/20 atorvastatin 80 mg tablet 80 mg PO DAILY #30 tabs 12/04/20 ibuprofen 600 mg tablet 600 mg PO Q6H PRN pain #20 tabs 04/08/24 lidocaine 5 % topical patch 1 patch topical DAILY #15 ea 04/08/24 Allergies Allergy/AdvReac Type Severity Reaction Status Date / Time No Known Allergies Allergy Verified 04/08/24 11:37 [No Known Allergies*] Review of Systems Review of Systems: As per HPI. Yes all other systems are reviewed and are negative Constitutional: Constitutional: Reports as per HPI [facility] Past Medical History Medical History (Updated 04/08/24 @ 16:47 by Lesly Flores NP) COPD (chronic obstructive pulmonary disease) Smoker Meningioma COPD (chronic obstructive pulmonary disease) HTN (hypertension) Cerebellar tumor Social History Social History Household Members: None Housing: Homeless Do you presently have visiting nurse or other home services: No Alcohol intake: current Alcohol intake frequency: holidays/special occasions only Cigarette Packs Per Day: 0.5 Cigarettes Per Day: 10.0 Years Smoked: 50 Second Hand Smoke Exposure: No Advance Directives: No Advance Directives Information Provided: Yes Do you have a plan to hurt others: No Plan service: No Current occupational status: retired Physical Exam ED Vital Signs: Vital Signs - 24 hr 04/08/24 11:33 04/08/24 15:03 Temperature 96.9 F 97.9 F Pulse Rate 93 82 Respiratory Rate 14 16 Blood Pressure 134/62 139/80 Pulse Oximetry 99 94 Oxygen Delivery Method Room Air Room Air BMI result Body Mass Index 22.7 Vital signs have been reviewed and appear to be correct. Blood pressure normal. Heart rate normal. Respiratory rate normal. Temperature normal. Oxygen saturation normal. Const General: cooperative, healthy appearing and no acute distress Orientation/consciousness: oriented to person, oriented to place, oriented to time and patient oriented x3 Limitations: no limitations HENMT Head: Yes No palpable skull fracture present, Yes normocephalic, Yes atraumatic, No Stiles's sign, No raccoon eyes and No periorbital ecchymosis Ears: external ears normal, TM's normal bilaterally and EAC's normal General nose exam: Normal external nose present Face and sinus: Yes face symmetric Mouth: oropharynx normal and moist mucous membranes Throat: Yes uvula midline Eyes Pupils: Equal, round and reactive pupils present EOM: EOMs intact bilaterally Neck Neck: Yes normal visual inspection, Yes full ROM and Yes supple Chest Chest palpation & inspection: normal inspection of the chest and tenderness rib left mid-scapular line involving the 8th rib, involving the 9th rib and involving the 10th rib Resp Effort & Inspection: normal respiratory effort and able to speak in complete sentences Auscultation: clear to auscultation bilaterally Cardio Rate: regular rate Rhythm: regular rhythm Heart sounds: S1 normal heart sound present and S2 normal heart sound present GI Palpation (GI): Soft to palpation and nontender Auscultation: normoactive bowel sounds General: Yes no CVA tenderness Back/Spine/Pelvis Back: no CVA tenderness Skin General skin exam: elasticity normal and turgor normal Neuro General: oriented to person, oriented to place, oriented to time, patient oriented x3, moves all extremities, no focal motor deficits and CN's II-XI intact bilaterally Cranial nerves: Yes Equal, round and reactive pupils present Cognition (Neuro): normal cognition Extrem General: Yes full ROM, Yes no pedal edema and Yes no calf tenderness Right upper extremity: elbow/forearm Details: normal ROM, abrasion and distal pulses intact Left upper extremity: elbow/forearm Details: normal ROM, abrasion and distal pulses intact Psych Mental Status: mental status grossly normal Affect: normal affect Thought process: Normal thought process present Course Course Course Narrative: RME performed by Ana Gerard PA-C. Patient is a 69 year old assigned female at presenting to the emergency department with left sided rib pain after a fall. Patient states she fell backwards down 2 steps and landed on her back, causing rib pain. Detailed physical exam and review of systems are deferred to the quencher operator. Imaging ordered. Patient placed back in the waiting room pending room availability and results. Medical Decision Making Medical Decision Making MDM Narrative: Patient is a 69-year-old female presenting to the emergency department with complaint of left posterior rib pain after a fall on Monday. On exam patient is awake, A+Ox3, VS WNL, afebrile, normal neurological exam without focal deficits, physical exam findings as above. Given reported symptoms and physical exam findings, initial differential includes ICH, skull or cervical vertebral fracture subluxation, rib fracture versus contusion, bilateral elbow abrasions with contusions versus fractures. X-ray bilateral elbows without evidence of fractures. CT head and c-spine notable for no ICH, skull, or cervical vertebral fracture or subluxation. CT head notable for worsening opacification of left mastoidectomy defect in left middle ear cavity which patient states she is already aware of. CT chest notable for minimally displaced left 9th rib fracture as well as new 1 cm right upper lobe mass and new 6mm left apical nodule. My interpretation is in agreement with the radiologist's interpretation. Discussed with patient that management of rib fracture is pain control, splinting during coughing, ensuring regular deep inspirations. Instructed patient that she will need to follow-up with PCP as well as Oncology regarding pulmonary nodules, will refer to Dr. Paiz. Return precautions discussed. Patient verbalized understanding of and agreement with plan. Differential Diagnosis Differential Diagnoses: The differential diagnosis associated with the presentation includes As per MDM. Independent Interpretation I performed an independent interpretation of an: Plain X-Ray and CT Scan Interpretation: X-ray bilateral elbows without evidence of fractures. CT head and c-spine notable for no ICH, skull, or cervical vertebral fracture or subluxation. CT head notable for worsening opacification of left mastoidectomy defect in left middle ear cavity which patient states she is already aware of. CT chest notable for minimally displaced left 9th rib fracture as well as new 1 cm right upper lobe mass and new 6mm left apical nodule. Radiology Impression Discussion of test interpretation with radiology: I have reviewed the radiologist's reading. Radiologist Impression: CT/CT head/brain wo IV con IMPRESSION: 1. No acute intracranial pathology. Stable chronic white matter microangiopathy and moderate generalized brain parenchymal volume loss. 2. 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 3. Worsened soft tissue opacification of the patient's left mastoidectomy defect and left middle ear cavity, for which the possibility of an underlying recurrent cholesteatoma cannot be ruled out. Additional abnormal angulation of an ossicular prosthesis, which may not optimally contact the oval window; clinically correlate. Recommend ENT follow-up evaluation to guide further management. 4. No evidence of acute cervical spine traumatic injury. 5. Mild interval increase in size of a 1.6 x 0.9 cm lobulated nodular lesion in the left parotid tail when compared to imaging from 11/30/2020. 6. Emphysematous changes in the lungs with a 0.6 cm nodule at the left lung apex, further assessed on the patient's dedicated chest CT study acquired contemporaneously on the same day and not present on a prior chest CT from 11/30/2020. Of note a suspicious 1 cm nodule is visible in the right upper lobe in the perihilar region on the patient's chest CT from 04/08/2024. Findings suspicious for potential malignancy. Imaging findings reported to BLAIR Gerard at 2:10 PM on 04/08/2024. CT/CT chest wo IV con IMPRESSION: 1. Acute minimally displaced left 9th rib fracture. 2. New 1 cm right upper lobe pulmonary mass and new 6 mm left apical pulmonary nodule. The1 cm lesion with spiculated margins is especially suspicious for malignancy. 3. Other incidental findings as described above. According to the UPDATED 2017 Fleischner Society recommendations, the advised follow-up imaging for a single solid nodule measuring greater than 8 [address] is consideration of CT at 3 months, PET/CT, or tissue sampling as clinically appropriate. CT/CT cervical spine wo IV con IMPRESSION: 1. No acute intracranial pathology. Stable chronic white matter microangiopathy and moderate generalized brain parenchymal volume loss. 2. 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 3. Worsened soft tissue opacification of the patient's left mastoidectomy defect and left middle ear cavity, for which the possibility of an underlying recurrent cholesteatoma cannot be ruled out. Additional abnormal angulation of an ossicular prosthesis, which may not optimally contact the oval window; clinically correlate. Recommend ENT follow-up evaluation to guide further management. 4. No evidence of acute cervical spine traumatic injury. 5. Mild interval increase in size of a 1.6 x 0.9 cm lobulated nodular lesion in the left parotid tail when compared to imaging from 11/30/2020. 6. Emphysematous changes in the lungs with a 0.6 cm nodule at the left lung apex, further assessed on the patient's dedicated chest CT study acquired contemporaneously on the same day and not present on a prior chest CT from 11/30/2020. Of note a suspicious 1 cm nodule is visible in the right upper lobe in the perihilar region on the patient's chest CT from 04/08/2024. Findings suspicious for potential malignancy. Imaging findings reported to BLAIR Gerard at 2:10 PM on 04/08/2024. XR/XR elbow RT min 3V IMPRESSION: 1. Right humeral medial epicondyle and dorsal right olecranon traction enthesopathy is seen. 2. No fracture or dislocation or signs of osteomyelitis are found. XR/XR elbow LT min 3V IMPRESSION: 1. Left humeral lateral condyle traction enthesopathy is seen. 2. Findings could represent left triceps calcific tendinitis. 3. No fracture or dislocation or signs of osteomyelitis are found. External Record Review External record reviewed: Inpatient record, Office record and Outpatient record Prescription Management I considered prescription management with: Pain Medication Discharge Plan Discharge Clinical Impression: Closed rib fracture Qualifiers: Encounter type: initial encounter Rib fracture type: single rib Laterality: left Qualified Code(s): S22.32XA - Fracture of one rib, left side, initial encounter for closed fracture Patient Disposition: Home, Self-Care Instructions: Rib Fracture (ED) Additional Instructions: You were evaluated in the emergency department today for rib pain after a fall. Your CT scan showed evidence of a 9th left rib fracture. There were also several nodules and a mass on your chest CT which are concerning and will need follow-up as soon as possible with your primary care provider as well as an oncologist. Please call to schedule appointments as soon as possible. Treatment for the rib fracture is pain management. We recommend 650 mg of Tylenol or 600 mg of ibuprofen every 6 hours. If necessary, you can alternate these medications every 3 hours. For example, at 9:00 a.m. take Tylenol, then at noon take ibuprofen, then at 3:00 p.m. take Tylenol, etc.. You are also being prescribed topical lidocaine patches which you can wear for up to 12 hours in a 24 hour period, do not apply heat directly over the patches. We recommend applying ice for 10-15 minutes at a time several times daily. It is important to take deep breaths to prevent pneumonia. Return to the emergency department for new or worsening symptoms. Prescriptions: New ibuprofen 600 mg tablet 600 mg PO Q6H PRN (Reason: pain) Qty: 20 0RF lidocaine 5 % adhesive patch,medicated 1 patch topical DAILY Qty: 15 0RF Rx Instructions: leave on most painful area for up to 12 hrs No Action clonazepam 1 mg tablet 1 tab PO DAILY lisinopril 40 mg tablet 1 tab PO DAILY atorvastatin 80 mg Tablet 80 mg PO DAILY Qty: 30 0RF aspirin 81 mg Tablet,Chewable 81 mg PO DAILY Qty: 30 0RF amlodipine 5 mg tablet 5 mg PO DAILY Qty: 30 0RF Breo Ellipta 200-25 mcg/dose blister with device inhalation albuterol sulfate [Ventolin HFA] 90 mcg/actuation HFA aerosol inhaler inhalation Referrals: Clarisa Paiz MD [Physician] - Print Language: Luxembourgish
[2024-04-08 15:03] VITALS: BP 139/80; PULSE 82; RESP 16; TEMP 36.6; O2SAT 94
[2024-04-08 18:59] VITALS: BP 135/84; PULSE 74; RESP 16; TEMP 37; O2SAT 98
== END 2024-04-08 19:00 | disposition home or self-care (01) ==
PROVIDERS: Emergency Provider Emergency Medicine; PCP Student in an Organized Health Care Education/Training Program
DX: S22.32XA Fracture of one rib, left side, initial encounter for closed fracture (principal); S09.90XA Unspecified injury of head, initial encounter; R51.9 Headache, unspecified; M54.2 Cervicalgia; R05.9 Cough, unspecified; M25.522 Pain in left elbow; R07.89 Other chest pain; M25.521 Pain in right elbow; W10.9XXA Fall (on) (from) unspecified stairs and steps, initial encounter; Y93.9 Activity, unspecified; Y92.9 Unspecified place or not applicable; Y99.8 Other external cause status
CPT/HCPCS: 70450; 71250; 72125; 73080; 99282; 99284

== ENCOUNTER 2025-03-11 14:00 | Outpatient (AMB) | payer MEDICARE, MEDICAID, SELFPAY ==
[2025-03-11 14:09] VITALS: BP 162/62; PULSE 94; O2SAT 96; BMI 25.0
--- NOTE | 2025-03-11 14:09 | A.OFFVIS_ITS ---
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: No Allergies No Known Allergies [No Known Allergies*] Allergy (Verified 03/11/25 14:38) Medication List - Last Reconciled 03/11/25 by Jessica Mortensen MD albuterol sulfate 90 mcg/actuation (Ventolin HFA) inhalation amlodipine 5 mg PO DAILY atorvastatin 80 mg PO DAILY clonazepam 1 tab PO DAILY fluticasone furoate-vilanterol 200-25 mcg/dose (Breo Ellipta) inhalation ibuprofen 600 mg PO Q6H PRN lidocaine 5% 1 patch topical DAILY lisinopril 1 tab PO DAILY Do you need a note to return to daycare/school/sports/work: No HPI HPI Abnormal CT scan (04/08/24): Details: This 70 years old female, is sent to me to discuss with her, regarding any further plans for dealing with a mass in the right upper lobe and a small nodule in the left upper lobe. She is a lifelong smoker, currently smoking half pack of cigarettes a day., not ready to consider quitting. She does have mild intermittent cough but denies any wheezing, has mild shortness of breath on walking fast or climbing stairs. She uses albuterol HFA 2 puffs Q 6 hours p.r.n., and Breo 200-251 inhalation daily. She had a CT scan of the chest in April 2024 and wants to discuss the findings. Her primary care physician Dr. Anguiano has already discussed with her and she has adamantly declined to have any further workup. She claims that she is doing well, . Except for mild intermittent cough When I talked to her about further workup to determine if she has malignant mass in the lung or if it is benign, she is very adamant to say that she does not care if she has any cancer are not. She claims that many members of her family have of cancer, and she will be ready to and join them . [facility] Medical History (Updated 03/11/25 @ 14:52 by Jessica Mortensen MD) Pulmonary nodules COPD (chronic obstructive pulmonary disease) Smoker Meningioma COPD (chronic obstructive pulmonary disease) HTN (hypertension) Cerebellar tumor Social History Household Members: None Housing: Homeless Do you presently have visiting nurse or other home services: No Alcohol intake: current Alcohol intake frequency: holidays/special occasions only Cigarette Packs Per Day: 0.5 Cigarettes Per Day: 10.0 Years Smoked: 50 Second Hand Smoke Exposure: No service: No Current occupational status: retired Review of Systems Const All systems reviewed & are unremarkable except as noted in HPI and below Eyes Reports no additional complaints ENT Reports nasal obstruction (MILD INTERMITTENT NASAL BLOCKAGE ON THE RIGHT SIDE) Card Reports no additional complaints Resp Reports as per HPI GI Reports no additional complaints Reports no additional complaints Musc Reports no additional complaints Skin/Breast Reports system reviewed and no additional complaints, except as documented Neuro Reports no additional complaints Psych Reports no additional complaints Physical Exam Vital Signs: Last Vital Signs Pulse 94 03/11/25 14:09 BP 162/62 H 03/11/25 14:09 Pulse Ox 96 03/11/25 14:09 Oxygen Delivery Method Room Air 03/11/25 14:09 BMI result Body Mass Index 25.0 Const General: healthy appearing, comfortable, no acute distress, alert and awake Orientation/consciousness: patient oriented x3 HEENT Head: Yes normal to inspection General nose exam: No nasal polyps present, No nasal discharge present and Abnormal mucous membranes and turbinates present (Mild hypertrophy of the nasal turbinate on right side) Face and sinus: Yes sinuses nontender Mouth: oropharynx normal Throat: Yes posterior oropharynx normal Eyes General: appearance normal, both eyes and all related structures Neck Neck: Yes normal visual inspection, Yes no lymphadenopathy, Yes trachea midline and Yes no JVD Thyroid: Thyroid normal Chest Chest palpation & inspection: normal inspection of the chest, normal palpation of entire chest wall and no tenderness Resp Other: Percussion note resonant . Has good breath sounds and equal on both sides. No wheezes rhonchi or crepitations are heard. Cardio Palpation: normal PMI Rate: regular rate Rhythm: regular rhythm Heart sounds: no gallops and no murmurs Peripheral pulses: Peripheral pulses 2+ throughout GI Palpation (GI): Soft to palpation, nontender, No hepatosplenomegaly present and no masses Auscultation: normal bowel sounds Back/Spine/Pelvis Thoracic/Lumbar Spine: thoracic and lumbar spine normal to inspection Skin General skin exam: no rashes or lesions noted Neuro General: patient oriented x3 and no focal motor deficits Cranial nerves: Yes CN's II-XII intact bilaterally Extrem General: Yes normal to inspection, Yes no clubbing, cyanosis or edema and Yes no calf tenderness Psych Speech and movement: Normal speech and movement present Results Reviewed Results Reviewed: 04/08/2024 CT scan OF CHEST IMPRESSION: 1. Acute minimally displaced left 9th rib fracture. 2. New 1 cm right upper lobe pulmonary mass and new 6 mm left apical pulmonary nodule. The1 cm lesion with spiculated margins is especially suspicious for malignancy. 3. Other incidental findings as described above. According to the UPDATED 2017 Fleischner Society recommendations, the advised follow-up imaging for a single solid nodule measuring greater than [address] of CT at 3 months, PET/CT, or tissue sampling as clinically appropriate. Assessment & Plan Assessment & Plan (1) Smoker: Comment: Lifelong smoker, starting at age 13, currently 10 cigarettes a day. Shows no interest in quitting smoking. Code(s): F17.200 - Nicotine dependence, unspecified, uncomplicated Category: Social Hx Plan: Talked about quitting smoking and she does not want to l this an to this advice. She say is she is going to continue to smoke and if she does have lung cancer, it is okay she would be pleased to and join her other family members. (2) COPD (chronic obstructive pulmonary disease): Comment: Clinically she has enough reason to have some degree of chronic obstructive pulmonary disease. At present symptoms are minimal. She does have on hand Breo 200-25 inhaler and Ventolin HFA. She is not using these inhalers on regular basis, keeps them only for p.r.n. use. Once again she declined to have any further workup such as pulmonary function test. Code(s): J44.9 - Chronic obstructive pulmonary disease, unspecified Category: Medical Plan: Patient does have mild intermittent cough with mild shortness of breath. Definitely suggestive of chronic obstructive pulmonary disease. As I have noted above she does not want to go through any detail pulmonary function test. She will keep Breo on hand but does not want to use it on a regular basis . She also does have albuterol inhaler on hand and he will use it only p.r.n. (3) Pulmonary nodules: Comment: CT scan of the chest in April 2024 did show: 1: 1 cm, spiculated mass in perihilar region of the right lung 2- a new 6 mm nodule in the apical area of the left upper lobe Code(s): R91.8 - Other nonspecific abnormal finding of lung field Category: Medical Plan: I talked to her and suggested that she should have PET CT . And if there is more suspicion for these nodules to be malignant then she would need percutaneous needle biopsy. She said NO to any such option. Adamantly, declines further workup and expresses that she is ready to face the consequences. Plan My office gave the card and advise that if she wants to come back to discuss she can call us. Otherwise continue to follow with primary care physician. Coding Level of Care Code Est Pt Level 4 (29694) Diagnoses Smoker F17.200 COPD (chronic obstructive pulmonary disease) J44.9 Pulmonary nodules R91.8
--- OUTSIDE RECORDS SUMMARY | 2025-03-11 15:47 | XMS_ITS | Clinical Summary ---
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 09/04/2022 Active albuterol (Ventolin HFA) 108 (90 Base) MCG/ACT inhaler Inhale every 6 (six) hours. 03/21/2022 Active clonazePAM (KlonoPIN) 1 MG tablet Take 1 tablet (1 mg) by mouth if needed at bedtime for anxiety. 30 tablet 08/28/2023 Active amLODIPine (Norvasc) 5 MG tablet Take 1 tablet (5 mg) by mouth Once per day. 90 tablet 12/31/2024 Active lisinopril 40 MG tablet Take 1 tablet by mouth once daily 90 tablet 01/07/2025 Active atorvastatin (Lipitor) 80 MG tablet TAKE 1 TABLET BY MOUTH ONCE DAILY AT BEDTIME 90 tablet 01/07/2025 Active meloxicam (Mobic) 15 MG tablet Take 1 tablet (15 mg) by mouth Once per day. 30 tablet 11 01/09/2025 Active Active Problems Problem Noted Date Diagnosed Date Multiple lung nodules on CT 01/09/2025 Overview (01/09/2025): pt convinced to be atleast seen by a specialst for consult She states she doesnt care and will see if she wants to go Chronic bilateral low back pain without sciatica 01/09/2025 Overview (01/09/2025): Started on Meloxicam as needed Cholesteatoma of left ear 01/09/2025 Overview (01/09/2025): Follows with ENT Anxiety 08/28/2023 Benign hypertension 10/17/2012 08/28/2023 Gastroesophageal reflux disease 10/17/2012 08/28/2023 Insomnia 10/17/2012 08/28/2023 Encounters Date Type Department Care Team Description 01/31/2025 Telephone [facility] [address] [place] [address] Miranda Anguiano MD Pulmonology Referral appt fu 01/09/2025 11:00 AM EDT Office Visit [facility] [address] [place] [address] Miranda Anguiano MD Benign hypertension (Primary Dx); Insomnia, unspecified type; Anxiety; Multiple lung nodules on CT; Chronic bilateral low back pain without sciatica; Cholesteatoma of left ear 01/09/2025 Travel 01/03/2025 Refill [facility] [address] [place] [address] Miranda Anguiano MD 12/30/2024 Refill [facility] [address] [place] [address] Miranda Anguiano MD 12/25/2024 Refill [facility] [address] [place] [address] Miranda Anguiano MD 12/20/2024 Population Health Risk Score [facility] Department [address] [place] [phone] Provider, Population Health Generic 12/17/2024 Refill [facility] [address] [place] [address] Miranda Anguiano MD from Last 3 Months Immunizations Immunization Administration Dates Next Due Influenza High-dose Quadriva lent Preservative Free 08/28/2023,09/08/2022,08/09/2021,07/08 Influenza injectable quadriv alent IIV4 with preservative 07/09/2019,08/24/2018,06/28/2016,06/22 Influenza injectable quadriv alent preservative free 07/27/2017 Influenza, IIV3, injectable 06/25/2014, 2,10/07/2011 Influenza, Split (incl. dashawn fied surface antigen) 06/11/2013 Pneumococcal Conjugate PCV 13 07/08/2020 Pneumococcal Polysaccharide PPSV23 04/21/2015 Tdap 07/27/2017 Social History Tobacco Use Types Packs/Day Years Used Date Smoking Tobacco: Every Day Cigarettes Smokeless Tobacco: Never Tobacco Cessation:Ready to Q uit: Not Asked; Counseling Given: Not Answered Alcohol Use Standard Drinks/Week Comments Defer 0 (1 standard drink = 0.6 oz pur e alcohol) Housing Stability Answer Date Recorded What is your housing situation today? I have mikhail qureshi 01/09/[address] you li ve. Do you have problems with any of the following? None of the above 01/09/2025 Food Insecurity Answer Date Recorded Within the past 12 months, y ou worried that your food would run out before you got money to buy more: Never True 01/09/2025 Within the past 12 months,th e food you bought just didn't last and you didn't have enough money to get more: Never True 12/2024 Transportation Answer Date Recorded In the past 12 months, has l ack of transportation kept you from medical appts, meetings, work or from getting things needed for daily living? No 01/09/2025 Utilities Answer Date Recorded In the past 12 months, has t he electric, gas, oil or water company threatened to shut off services in your home? No 01/09/2025 Internet Access Answer Date Recorded Internet Access Q1 No 01/09/2025 Internet Access Q2 I do not want or need it 12/2024 Comments No Sex and Gender Information Value Date Recorded Sex Assigned at Female 08/08/2022 10:17 AM EDT Legal Sex Female 10:17 AM EDT Gender Identity Choose not to disclose 10:17 AM EDT Sexual Orientation Choose not to disclose 2021 10:17 AM EDT Last Filed Vital Signs Vital Sign Reading Time Taken Comments Blood Pressure 154/63 01/09/2025 11:19 AM EDT Pulse 75 01/09/2025 11:19 AM EDT Temperature 36.3 ??C (97.3 ??F) 01/09/2025 11:19 AM E DT Respiratory Rate 20 01/09/2025 11:19 AM EDT Oxygen Saturation 97% 01/09/2025 11:19 AM EDT Inhaled Oxygen Concentration - - Weight 59 kg (130 lb) 01/09/2025 11:19 AM EDT Height 154.3 cm (5' 0.75 ) 01/09/2025 11:19 AM E DT Body Mass Index 24.77 01/09/2025 11:19 AM EDT Plan of Treatment Upcoming Encounters Date Type Department Care Team (Late st Contact Info) Description 04/10/2025 11:30 AM EDT Office Visit [facility] [address] [place] [address] Miranda Anguiano MD [address] [place] [address] Health Maintenance Due Date Last Done Comments CT Colonography 1955 Depression Screening 1955 FIT DNA/Cologuard 1955 FIT 1955 FOBT 1955 Sigmoidoscopy 1955 Alcohol/Substance Use Screening 1967 Hepatitis C Screening 1973 Zoster Vaccines (1 of 2) 2005 COVID-19 Vaccine (3 - season) 2024 03/17/2021, 02/17/2021 Influenza Vaccine (Season Ended) 2025 08/28/2023, 09/08/2022, 08/09/2021, Additional history exists Pneumococcal Vaccine: 50+ Years (3 of 3 - PCV20 or PCV21) 07/08/2025 07/08/2020, 04/21/2015 SDOH Screening 01/09/2026 01/09/2025 Tobacco Screening 01/09/2026 01/09/2025 Mammogram 03/20/2026 03/20/2024, 08/10, 04/01/2022, Additional history exists Colonoscopy 01/27/2027 01/27/2017 Colorectal Cancer Screening 01/27/2027 DTaP/Tdap/Td Vaccines (2 - Td or Tdap) 07/27/2027 07/27/2017 Lipid Panel 08/28/2028 08/28/2023, 03/25/2022 RSV Patients and Patients Aged 60 years or older (1 - 1-dose 75+ series) 2030 HIB Vaccines Aged Out No longer eligi ble based on patient's age to complete this topic HPV Vaccines Aged Out No longer eligi ble based on patient's age to complete this topic Hepatitis A Vaccines Aged Out No long er eligible based on patient's age to complete this topic Hepatitis B Vaccines Aged Out No long er eligible based on patient's age to complete this topic IPV Vaccines Aged Out No longer eligi ble based on patient's age to complete this topic Meningococcal B Vaccine Aged Out No l onger eligible based on patient's age to complete this topic Meningococcal Vaccine Aged Out No bhaskar shari eligible based on patient's age to complete this topic RSV under 20 months Aged Out No longe r eligible based on patient's age to complete this topic Rotavirus Vaccines Aged Out No longer eligible based on patient's age to complete this topic Procedures Procedure Name Priority Date/Time Associated Diagnosis Comments BI MAMMOGRAM DIAGNOSTIC TOMOSYNTHESIS BILATERAL Routine 03/20/2024 3:00 PM EDT LIPID PANEL, STANDARD Routine 08/28/2023 10:38 AM EST Benign hypertension HM COLONOSCOPY Routine 01/27/2017 10:32 AM EDT from Last 3 Months or Most Recently Relevant to Health Maintenance Results * BI Mammogram Diagnostic Tomosynthesis Bilateral (03/20/2024 3:00 PM EDT) Anatomical Region Laterality Modality Breast Bilateral Mammography 03/20/2024 3:00 PM EDT Narrative 03/20/2024 3:41 PM EDT ? [facility] ? [address] ?[place] [address] ? Mammography Report ? Signed ? Patient: Khadra,Yasmine M ?MR#: [id number] ?? [id number] ? : 1955 ?Acct:[id number] ? Age/Sex: 69 / F ?ADM Date: 12/24 ? Loc: HO.MAMMO ? Attending Dr: Miranda Anguiano MD ? Ordering Physician: Miranda Anguiano MD ?Results: 2Benign ?? Findings ? Date of Service: 03/20/24 ?Follow Up: 1 Year From Orig ?? inal Mammogram ? Procedure(s): MM tomosynthesis diagnostic BI ?? Accession Number(s): [id number] ? cc: Miranda Anguiano MD ? EXAMINATION: ?? MM DIAGNOSTIC DIGITAL BREAST TOMOSYNTHESIS, BILATERAL ? CLINICAL INFORMATION: ? 6 month follow-up for right breast ossifications upper outer quadrant, ?? middle one third. Patient also due for bilateral screening. Patient is ?? late for six-month follow-up due to a stroke. This will establish a ?? two-year stability if calcifications are stable. ? COMPARISON: ?? Mammography: 08/30/2022, 04/01/2022, 03/25/2022 (diagnostic, BI-RADS ?? 3), 03/25/2022, 11/22/2016, ultrasound right breast 04/01/2022 ? TECHNIQUE: ?? Digital breast tomosynthesis is performed in both the craniocaudal and ?? mediolateral oblique views along with computer-aided detection (CAD). ?? Synthesized 2D images are generated from the tomosynthesis. In ?? addition, 2-D spot magnification right CC and ML views were obtained. ? FINDINGS: ?? There are scattered areas of fibroglandular density (ACR BI-RADS breast ?? composition Category b). ? Calcifications in the upper outer right breast, middle one third, ?? remains unchanged without aggressive features, predominantly punctate ?? and round, with regional loose grouping. ??These have been unchanged ?? since 03/25/2022 and are thus benign. No further follow-up recommended. ? There is a stable lobular mass representing a cluster of cysts in the ?? posterior lateral right breast, 9:00 axis. In the left breast at the ?? 11:30 o'clock axis, posterior one third, there is a lobular mass. ?? Similar to the finding on the right breast. ? This finding is also a unchanged from 03/25/2022, establishing ?? benignity. There are a few scattered non-grouped calcifications in the ?? central left breast as well. ? There is otherwise no developing mass, new suspicious calcifications, ?? or developing area of architectural distortion in either breast. ?? Parenchymal pattern is stable from prior exams. There is no skin or ?? axillary abnormality of suspicion. ? MM/MM tomosynthesis diagnostic BI ?? IMPRESSION: ?? -There are no findings suspicious for malignancy in either breast. ?? There are stable benign findings as described above. ? -Calcifications in the upper outer right breast are unchanged and ?? stable over 2 years, hence benign. No further follow-up recommended. ? -Lobular masses in both breasts are also stable and benign. ? Recommend the patient return to routine annual screening. ? ASSESSMENT: ? BI-RADS BI-RADS 2 - Benign Findings ? RECOMMENDATION: ?? 1 year F/U ? Results were provided to the patient at time of visit by the ?? technologist. ? This patient's information was entered into a reminder system with a ?? target due date for their next mammogram. ? Dictated By: ?Adán Fox MD ? Signed By: ?<Electronically signed by Adán Fox MD in OV> ?03/20/24 1537 ? DD/ 1500 ? TD/TT: ? 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 Procedure Note Donotuseinterpreter, Image - [facility] [address] [place] [address] Mammography Report Signed Patient: Yasmine Gaviria [facility]#: [id number] : 5Acct:[id number] Age/Sex: 69 / FADM Date: 03/20/24 Loc: IRENE.MAMMO Attending Dr: Miranda Anguiano MD Ordering Physician: Miranda Anguiano MDResults: 2Benign Findings Date of Service: 03/20/24Follow Up: 1 Year From Orig ina Mammogram Procedure(s): MM tomosynthesis diagnostic BI Accession Number(s): [id number] cc: Miranda Anguiano MD EXAMINATION: MM DIAGNOSTIC DIGITAL BREAST TOMOSYNTHESIS, BILATERAL CLINICAL INFORMATION: 6 month follow-up for right breast ossifications upper outer quadrant, middle one third. Patient also due for bilateral screening. Patient is late for six-month follow-up due to a stroke. This will establish a two-year stability if calcifications are stable. COMPARISON: Mammography: 08/30/2022, 04/01/2022, 03/25/2022 (diagnostic, BI-RADS 3), 03/25/2022, 11/22/2016, ultrasound right breast 04/01/2022 TECHNIQUE: Digital breast tomosynthesis is performed in both the craniocaudal and mediolateral oblique views along with computer-aided detection (CAD). Synthesized 2D images are generated from the tomosynthesis. In addition, 2-D spot magnification right CC and ML views were obtained. FINDINGS: There are scattered areas of fibroglandular density (ACR BI-RADS breast composition Category b). Calcifications in the upper outer right breast, middle one third, remains unchanged without aggressive features, predominantly punctate and round, with regional loose grouping. These have been unchanged since 03/25/2022 and are thus benign. No further follow-up recommended. There is a stable lobular mass representing a cluster of cysts in the posterior lateral right breast, 9:00 axis. In the left breast at the 11:30 o'clock axis, posterior one third, there is a lobular mass. Similar to the finding on the right breast. This finding is also a unchanged from 03/25/2022, establishing benignity. There are a few scattered non-grouped calcifications in the central left breast as well. There is otherwise no developing mass, new suspicious calcifications, or developing area of architectural distortion in either breast. Parenchymal pattern is stable from prior exams. There is no skin or axillary abnormality of suspicion. MM/MM tomosynthesis diagnostic BI IMPRESSION: -There are no findings suspicious for malignancy in either breast. There are stable benign findings as described above. -Calcifications in the upper outer right breast are unchanged and stable over 2 years, hence benign. No further follow-up recommended. -Lobular masses in both breasts are also stable and benign. Recommend the patient return to routine annual screening. ASSESSMENT: BI-RADS BI-RADS 2 - Benign Findings RECOMMENDATION: 1 year F/U Results were provided to the patient at time of visit by the technologist. This patient's information was entered into a reminder system with a target due date for their next mammogram. 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 Miranda Anguiano MD IMG BI PROCEDURES Final Result * Lipid Panel, Standard (08/28/2023 10:38 AM EST) Triglycerides 108 <150 mg/dL [facility] Comment:Desirable Triglyceri de: less than 150 mg/dLBorderline High Triglyceride 150-199 mg/dLHigh Triglyceride: 200-499 mg/dLVery High Triglyceride: greater than or equal to 5OO mg/dL Cholesterol 178 <200 mg/dL [facility] Comment:Desirable Cholestero l: less than 200 mg/dLBorderline High Cholesterol: 200-239 mg/dLHigh Cholesterol: greater than 239 mg/dL LDL Cholesterol Calculated 99 <100 mg/dL [facility] Comment:Desirable LDL: less than 100 mg/dLNear Optimal/Above Optimal LDL: 110- 129 mg/dLBorderline High LDL: 130-159 mg/dLHigh LDL: 160-189 mg/dLVery High LDL: greater than or equal to 190 mg/dL HDL Cholesterol 58 >40 mg/dL [facility] Comment:Desirable HDL: great er than 40 mg/dL Note: This HDL assay may give artificially low results in patients with liver disease. Blood Venous blood specimen / Unknown 08/28/2023 10:38 AM EST 08/28/2023 2:37 PM EST Miranda Anguiano MD LAB BLOOD ORDERABLES Final Resul t [facility] [address] [place] [address] [phone] * Hm Colonoscopy (01/27/2017 10:32 AM EDT) us Historical Provider HEALTH MAINTENANCE Final Result from Last 3 Months or Most Recently Relevant to Health Maintenance Insurance MEDICARE [facility] STANDARD Care Teams Van Driver Helper Relationship Specialty Start Date End Date Miranda Anguiano MD [address] [place] [id number] PCP - General Family Medicine 09/21/12
== END 2025-03-11 14:35 | disposition home or self-care (01) ==
LOC: HO.HPS 14:02
PROVIDERS: PCP Student in an Organized Health Care Education/Training Program; Referring Provider Student in an Organized Health Care Education/Training Program; Visit Provider Internal Medicine
DX: F17.200 Nicotine dependence, unspecified, uncomplicated (principal); J44.9 Chronic obstructive pulmonary disease, unspecified; R91.8 Other nonspecific abnormal finding of lung field
CPT/HCPCS: 99214

== ENCOUNTER → 2025-03-11 14:00 | Outpatient (BNVA) | payer MEDICARE, MEDICAID, SELFPAY | PROVIDERS: PCP Student in an Organized Health Care Education/Training Program; Referring Provider Student in an Organized Health Care Education/Training Program; Visit Provider Internal Medicine | DX: J44.9 Chronic obstructive pulmonary disease, unspecified (principal); R91.8 Other nonspecific abnormal finding of lung field; F17.210 Nicotine dependence, cigarettes, uncomplicated | CPT/HCPCS: 99212 ==

== ENCOUNTER 2025-03-26 15:09 | Outpatient (REF) | payer MEDICARE, MEDICAID, SELFPAY ==
--- NOTE | ~2025-03-26 | MM_ITS ---
EXAMINATION: MM SCREENING DIGITAL BREAST TOMOSYNTHESIS, BILATERAL CLINICAL INFORMATION: Screening. Asymptomatic. COMPARISON: Mammography: Comparison is made with available priors TECHNIQUE: Digital breast mammography with tomosynthesis is performed in both the craniocaudal and mediolateral oblique views along with computer-aided detection (CAD). FINDINGS: There are scattered areas of fibroglandular density (ACR BI-RADS breast composition Category b). Left: Asymmetry retroareolar region posterior depth on MLO view increased in size from mammogram 2017. No suspicious calcifications or other abnormal findings. Right: Asymmetry superior breast posterior depth on MLO view increased in size from mammogram 2017. No suspicious calcifications or other abnormal findings. MM/MM tomosynthesis screening BI IMPRESSION: Additional imaging is recommended ASSESSMENT: BI-RADS BI-RADS 0 - Incomplete: Needs additional Imaging. RECOMMENDATION: 1. Additional views of the ...... 2. Targeted ultrasound if warranted after review of the additional views. 3. Radiology department staff will contact the patient for additional imaging. Additional Imaging required This examination should not preclude the clinical evaluation of a suspicious palpable abnormality. This patient's information was entered into a reminder system with a target due date for their next mammogram. Electronically signed by: Patrica Bedolla DO 04/01/2025 01:27 PM EDT
--- OUTSIDE RECORDS SUMMARY | 2025-03-26 17:28 | XMS_ITS | Clinical Summary ---
Author Organization [employer] Address [address] [facility] [address] [place] [address] Care Team Providers Care Foreign Agent Name Role Phone Miranda Anguiano MD Primary Care Provider [phone] Allergies No known active allergies Medications EQ [...] Type Department Care Team Description 01/31/2025 Telephone [facility] [address] [place] [address] Miranda Anguiano MD Pulmonology Referral appt fu 01/09/2025 11:00 AM EDT Office Visit [facility] [address] [place] [address] Miranda Anguiano MD Benign hypertension (Primary Dx); Insomnia, unspecified type; Anxiety; Multiple lung nodules on CT; Chronic bilateral low back pain without sciatica; Cholesteatoma of left ear 01/09/2025 Travel 01/03/2025 Refill [facility] [address] [place] [address] Miranda Anguiano MD 12/30/2024 Refill [facility] [address] [place] [address] Miranda Anguiano MD 12/25/2024 Refill [facility] [address] [place] [address] Miranda Anguiano MD from Last 3 Months [...] 75 01/09/2025 11:19 AM EDT Temperature 36.3 C (97.3 F) 01/09/2025 11:19 AM EDT Respiratory Rate 20 01/09/2025 11:19 AM EDT [...] Description 04/10/2025 11:30 AM EDT Office Visit [facility] [address] [place] [address] Miranda Anguiano MD [address] [place] [address] Health Maintenance Due Date Last Done Comments [...] PM EDT Narrative 03/20/2024 3:41 PM EDT [facility] [address] [place] [address] Mammography Report Signed Patient: Yasmine Gaviria MR#: [id number] : 1955 Acct:[id number] Age/Sex: 69 / F ADM Date: 03/20/24 Loc: MAMMO Attending Dr: Miranda Anguiano MD Ordering Physician: Miranda Anguiano MD Results: 2Benign Findings Date of Service: 03/20/24 Follow Up: 1 Year From Orig inal Mammogram Procedure(s): MM tomosynthesis diagnostic BI Accession Number(s): [id number] cc: Miranda Anguiano MD EXAMINATION: MM DIAGNOSTIC [...] in OV> 03/20/24 1537 DD/ 1500 TD/TT: Emergency Medical Service Manager: Procedure Note Donotuseinterpreter, Image - 03/20/2024 [facility] [address] [place], [place] [address] Mammography Report Signed Patient: Yasmine Gaviria [facility]#: [id number] : 5Acct:[id number] Age/Sex: 69 / FADM Date: 03/20/24 Loc: MAMMO Attending Dr: Miranda Anguiano MD Ordering Physician: Miranda Anguiano MDResults: 2Benign Findings Date of Service: 03/20/24Follow Up: 1 Year From Orig ina Mammogram Procedure(s): MM tomosynthesis diagnostic BI Accession Number(s): [id number] cc: Miranda Anguiano MD EXAMINATION: MM DIAGNOSTIC [...] in OV> 03/20/24 1537 DD/ 1500 TD/TT: Emergency Medical Service Manager: us Miranda Anguiano MD IM BI PROCEDURES Final Result * Lipid Panel, Standard (08/28/2023 10:38 AM EST) Triglycerides 108 <150 mg/dL [facility] Comment:Desirable Triglyceri de: less than 150 mg/dLBorderline High Triglyceride 150-199 mg/dLHigh Triglyceride: 200-499 mg/dLVery High Triglyceride: greater than or equal to 5OO mg/dL Cholesterol 178 <200 mg/dL [facility] Comment:Desirable Cholestero l: less than 200 mg/dLBorderline High Cholesterol: 200-239 mg/dLHigh Cholesterol: greater than 239 mg/dL LDL Cholesterol Calculated 99 <100 mg/dL [facility] Comment:Desirable LDL: less than 100 mg/dLNear Optimal/Above Optimal LDL: 110- 129 mg/dLBorderline High LDL: 130-159 mg/dLHigh LDL: 160-189 mg/dLVery High LDL: greater than or equal to 190 mg/dL HDL Cholesterol 58 >40 mg/dL [facility] Comment:Desirable HDL: great er than 40 mg/dL Note: This HDL assay may give artificially low results in patients with liver disease. Blood Venous blood specimen / Unknown 08/28/2023 10:38 AM EST 08/28/2023 2:37 PM EST Miranda Anguiano MD LAB BLOOD ORDERABLES Final Resul t [facility] [address] [place] [address] [phone] * Hm Colonoscopy (01/27/2017 10:32 AM EDT) Historical Provider HEALTH MAINTENANCE Final Result from Last 3 Months or Most Recently Relevant to Health Maintenance Insurance [place] [address] [place] [id number] [facility] Care Teams Foreign Agent Relationship Specialty Start Date End Date Miranda Anguiano MD [address] [place] [phone] PCP - General Family Medicine 09/21/12
== END 2025-03-26 15:10 | disposition home or self-care (01) ==
LOC: HO.MAMMO 15:09
PROVIDERS: Visit Provider Student in an Organized Health Care Education/Training Program
DX: Z12.31 Encounter for screening mammogram for malignant neoplasm of breast (principal)
CPT/HCPCS: 77063; 77067

== ENCOUNTER → 2025-03-26 15:15 | Outpatient (BNV) | payer MEDICARE, MEDICAID, SELFPAY | PROVIDERS: Visit Provider Internal Medicine | DX: Z12.31 Encounter for screening mammogram for malignant neoplasm of breast (principal) | CPT/HCPCS: 77063; 77067 ==